=== PATIENT | female | born 1955 | race Caucasian/White ===

== ENCOUNTER 2021-08-02 08:46 | Outpatient (RCR) | payer MEDICARE, OTHER, SELFPAY ==
[2021-08-02 09:21] LABS: Abs Immature Grans 0.04 10^3/uL (0.0-0.06); Absolute Basophil Count 0.06 10^3/uL (0.0-0.2); Absolute Eosinophil Count 0.13 10^3/uL (0.0-0.7); Absolute Lymphocyte Count 0.76 10^3/uL (1.2-3.4); Absolute Monocyte Count 0.59 10^3/uL (0.1-0.8); Absolute Neutrophil Count 5.04 10^3/uL (1.2-6.7); Basophils % 0.9; HCT 37.4 % (36.0-46.0); HGB 12.7 g/dL (11.2-15.7); Immature Grans % 0.6; Lymphocytes % 11.5; MCH 34.7 pg (27.0-33.0); MCV 102.2 fL (80-95); MPV 9.8 fL (8.0-11.0); Monocytes % 8.9; Neutrophils % 76.1; Nucleated RBC 0 %; Platelet Count 265 10^3/uL (130-400); RBC 3.66 10^6/uL (3.93-5.22); RDW 11.7 % (11.7-14.6); RDW-SD 44.1 fL; WBC 6.62 10^3/uL (4.4-10.8)
[2021-08-02] MEDS: Normal Saline Flush 10 ML SYR IVP (09:47)
[2021-08-02 09:52] LABS: ALT 15 U/L (14-59); AST 18 U/L (15-37); Albumin 3.6 g/dL (3.4-5.0); Alkaline Phosphatase 86 U/L (46-116); Anion Gap 10.8 mmol/L (3-11); BUN 17 mg/dL (7-18); Bilirubin, Total 0.5 mg/dL (0.2-1.0); CO2 25.2 mmol/L (21.0-32.0); CREATININE 0.8 mg/dL (0.55-1.02); Calcium 9.5 mg/dL (8.5-10.1); Chloride 104 mmol/L (98-107); FREE T4 1.07 ng/dL (0.76-1.46); Glucose 131 mg/dL (74-106); Magnesium 1.8 mg/dL (1.8-2.4); Potassium 4.1 mmol/L (3.5-5.1); Sodium 140 mmol/L (136-145); TSH 1.49 uIU/mL (0.36-3.74); Total Protein 7.7 g/dL (6.4-8.2)
== END 2021-08-19 23:59 | disposition home or self-care (01) ==
LOC: INF 08:46
PROVIDERS: Visit Provider Internal Medicine Medical Oncology
DX: C34.32 Malignant neoplasm of lower lobe, left bronchus or lung (principal); Z45.2 Encounter for adjustment and management of vascular access device
CPT/HCPCS: 36591; 80053; 83735; 84439; 84443; 85025

== ENCOUNTER 2021-08-30 01:51 | Outpatient (RCR) | payer MEDICARE, OTHER, SELFPAY ==
[2021-08-30] MEDS: Normal Saline Flush 10 ML SYR IVP (12:00)
[2021-08-30 12:08] LABS: Abs Immature Grans 0.02 10^3/uL (0.0-0.06); Absolute Basophil Count 0.05 10^3/uL (0.0-0.2); Absolute Eosinophil Count 0.19 10^3/uL (0.0-0.7); Absolute Lymphocyte Count 0.66 10^3/uL (1.2-3.4); Absolute Neutrophil Count 4.21 10^3/uL (1.2-6.7); Basophils % 0.9; Eosinophils % 3.3; HCT 36.2 % (36.0-46.0); HGB 12.3 g/dL (11.2-15.7); Immature Grans % 0.3; Lymphocytes % 11.5; MPV 9.6 fL (8.0-11.0); Monocytes % 10.5; Neutrophils % 73.5; Nucleated RBC 0 %; Platelet Count 228 10^3/uL (130-400); RBC 3.62 10^6/uL (3.93-5.22); RDW-SD 44.1 fL; WBC 5.73 10^3/uL (4.4-10.8)
[2021-08-30 12:32] LABS: ALT 30 U/L (14-59); AST 19 U/L (15-37); Albumin 3.5 g/dL (3.4-5.0); Alkaline Phosphatase 91 U/L (46-116); Anion Gap 8.1 mmol/L (3-11); BUN 13 mg/dL (7-18); Bilirubin, Total 0.6 mg/dL (0.2-1.0); CO2 26.9 mmol/L (21.0-32.0); CREATININE 0.7 mg/dL (0.55-1.02); Calcium 9.5 mg/dL (8.5-10.1); Chloride 102 mmol/L (98-107); FREE T4 1.22 ng/dL (0.76-1.46); Glucose 107 mg/dL (74-106); Magnesium 1.7 mg/dL (1.8-2.4); Potassium 4.1 mmol/L (3.5-5.1); Sodium 137 mmol/L (136-145); TSH 2.19 uIU/mL (0.36-3.74); Total Protein 7.2 g/dL (6.4-8.2)
== END 2021-09-18 23:59 | disposition home or self-care (01) ==
LOC: INF 01:51
PROVIDERS: Visit Provider Internal Medicine Medical Oncology
DX: Z45.2 Encounter for adjustment and management of vascular access device (principal); C34.32 Malignant neoplasm of lower lobe, left bronchus or lung
CPT/HCPCS: 36591; 80053; 85027; 83735; 84439; 84443; 85025

== ENCOUNTER 2021-09-27 00:52 | Outpatient (RCR) | payer MEDICARE, OTHER, SELFPAY ==
[2021-09-27 08:43] LABS: Abs Immature Grans 0.05 10^3/uL (0.0-0.06); Absolute Basophil Count 0.03 10^3/uL (0.0-0.2); Absolute Eosinophil Count 0.14 10^3/uL (0.0-0.7); Absolute Lymphocyte Count 0.58 10^3/uL (1.2-3.4); Absolute Monocyte Count 0.62 10^3/uL (0.1-0.8); Basophils % 0.3; Eosinophils % 1.2; HCT 39.6 % (36.0-46.0); HGB 13.6 g/dL (11.2-15.7); Immature Grans % 0.4; Lymphocytes % 5.1; MCH 33.1 pg (27.0-33.0); MCHC 34.3 % (32.0-36.0); MCV 96 fL (80-95); MPV 9.8 fL (8.0-11.0); Monocytes % 5.5; Neutrophils % 87.5; Platelet Count 282 10^3/uL (130-400); RBC 4.11 10^6/uL (3.93-5.22); RDW 11.8 % (11.7-14.6); RDW-SD 41.6 fL; WBC 11.29 10^3/uL (4.4-10.8)
[2021-09-27 08:44] LABS: Absolute Neutrophil Count 9.88 10^3/uL (1.2-6.7)
[2021-09-27 09:07] LABS: ALT 22 U/L (14-59); AST 14 U/L (15-37); Albumin 3.4 g/dL (3.4-5.0); Alkaline Phosphatase 97 U/L (46-116); Anion Gap 9.5 mmol/L (3-11); BUN 14 mg/dL (7-18); Bilirubin, Total 0.6 mg/dL (0.2-1.0); CO2 23.5 mmol/L (21.0-32.0); CREATININE 0.7 mg/dL (0.55-1.02); Calcium 9.1 mg/dL (8.5-10.1); Chloride 100 mmol/L (98-107); FREE T4 1.15 ng/dL (0.76-1.46); Glucose 154 mg/dL (74-106); Potassium 4.3 mmol/L (3.5-5.1); Sodium 133 mmol/L (136-145); TSH 1.21 uIU/mL (0.36-3.74); Total Protein 7.2 g/dL (6.4-8.2)
[2021-09-27] MEDS: Normal Saline Flush 10 ML SYR IVP (10:09)
== END 2021-10-19 23:59 | disposition home or self-care (01) ==
LOC: INF 00:52
PROVIDERS: Visit Provider Internal Medicine Medical Oncology
DX: C34.32 Malignant neoplasm of lower lobe, left bronchus or lung (principal); Z45.2 Encounter for adjustment and management of vascular access device
CPT/HCPCS: 36415; 36591; 80053; 96523; 83735; 84439; 84443; 85025

== ENCOUNTER 2021-10-25 02:58 | Outpatient (RCR) | payer MEDICARE, OTHER, SELFPAY ==
[2021-10-25] MEDS: Normal Saline Flush 10 ML SYR IVP (08:20)
[2021-10-25 09:00] LABS: Abs Immature Grans 0.03 10^3/uL (0.0-0.06); Absolute Basophil Count 0.06 10^3/uL (0.0-0.2); Absolute Eosinophil Count 0.39 10^3/uL (0.0-0.7); Absolute Lymphocyte Count 0.66 10^3/uL (1.2-3.4); Absolute Monocyte Count 0.57 10^3/uL (0.1-0.8); Absolute Neutrophil Count 5.03 10^3/uL (1.2-6.7); Basophils % 0.9; Eosinophils % 5.8; HCT 38.8 % (36.0-46.0); HGB 13.1 g/dL (11.2-15.7); Immature Grans % 0.4; Lymphocytes % 9.8; MCH 32.3 pg (27.0-33.0); MCHC 33.8 % (32.0-36.0); MCV 96 fL (80-95); MPV 10.3 fL (8.0-11.0); Monocytes % 8.5; Neutrophils % 74.6; Platelet Count 252 10^3/uL (130-400); RBC 4.06 10^6/uL (3.93-5.22); RDW 11.9 % (11.7-14.6); RDW-SD 41.4 fL; WBC 6.74 10^3/uL (4.4-10.8)
[2021-10-25 09:36] LABS: ALT 23 U/L (14-59); AST 20 U/L (15-37); Albumin 3.3 g/dL (3.4-5.0); Alkaline Phosphatase 92 U/L (46-116); BUN 9 mg/dL (7-18); Bilirubin, Total 0.5 mg/dL (0.2-1.0); CREATININE 0.7 mg/dL (0.55-1.02); Calcium 9.6 mg/dL (8.5-10.1); FREE T4 1.05 ng/dL (0.76-1.46); Glucose 116 mg/dL (74-106); Magnesium 1.8 mg/dL (1.8-2.4); TSH 1.96 uIU/mL (0.36-3.74); Total Protein 7.2 g/dL (6.4-8.2)
[2021-10-25 09:48] LABS: Anion Gap 8.4 mmol/L (3-11); CO2 29.6 mmol/L (21.0-32.0); Chloride 101 mmol/L (98-107); Potassium 4.2 mmol/L (3.5-5.1); Sodium 139 mmol/L (136-145)
== END 2021-11-18 23:59 | disposition home or self-care (01) ==
LOC: INF 02:58
PROVIDERS: Visit Provider Internal Medicine Medical Oncology
DX: C34.32 Malignant neoplasm of lower lobe, left bronchus or lung (principal); Z45.2 Encounter for adjustment and management of vascular access device; Z79.899 Other long term (current) drug therapy
CPT/HCPCS: 36415; 80053; 96523; 83735; 84439; 84443; 85025

== ENCOUNTER 2021-12-13 02:35 | Outpatient (RCR) | payer MEDICARE, OTHER, SELFPAY ==
[2021-11-29] MEDS: Normal Saline Flush 10 ML SYR IVP (09:40)
[2021-11-29 10:05] LABS: Abs Immature Grans 0.02 10^3/uL (0.0-0.06); Absolute Basophil Count 0.06 10^3/uL (0.0-0.2); Absolute Eosinophil Count 0.21 10^3/uL (0.0-0.7); Absolute Lymphocyte Count 0.74 10^3/uL (1.2-3.4); Absolute Monocyte Count 0.54 10^3/uL (0.1-0.8); Absolute Neutrophil Count 4.35 10^3/uL (1.2-6.7); Eosinophils % 3.5; HCT 38.7 % (36.0-46.0); HGB 13.2 g/dL (11.2-15.7); Immature Grans % 0.3; Lymphocytes % 12.5; MCH 32.4 pg (27.0-33.0); MCHC 34.1 % (32.0-36.0); MCV 95 fL (80-95); MPV 9.6 fL (8.0-11.0); Monocytes % 9.1; Neutrophils % 73.6; Platelet Count 252 10^3/uL (130-400); RBC 4.07 10^6/uL (3.93-5.22); RDW 11.9 % (11.7-14.6); RDW-SD 41.3 fL; WBC 5.92 10^3/uL (4.4-10.8)
[2021-11-29 10:36] LABS: ALT 20 U/L (14-59); AST 15 U/L (15-37); Albumin 3.3 g/dL (3.4-5.0); Alkaline Phosphatase 93 U/L (46-116); Anion Gap 9.1 mmol/L (3-11); BUN 11 mg/dL (7-18); Bilirubin, Total 0.6 mg/dL (0.2-1.0); CO2 27.9 mmol/L (21.0-32.0); CREATININE 0.7 mg/dL (0.55-1.02); Calcium 9.5 mg/dL (8.5-10.1); Chloride 99 mmol/L (98-107); FREE T4 1.12 ng/dL (0.76-1.46); Glucose 100 mg/dL (74-106); Magnesium 1.7 mg/dL (1.8-2.4); Sodium 136 mmol/L (136-145); TSH 1.98 uIU/mL (0.36-3.74)
== END 2021-12-19 23:59 | disposition home or self-care (01) ==
LOC: INF 02:35
PROVIDERS: Visit Provider Internal Medicine Medical Oncology
DX: C34.32 Malignant neoplasm of lower lobe, left bronchus or lung (principal); Z45.2 Encounter for adjustment and management of vascular access device
CPT/HCPCS: 36415; 36591; 80053; 83735; 84439; 84443; 85025

== ENCOUNTER 2022-01-10 03:27 | Outpatient (RCR) | payer MEDICARE, OTHER, SELFPAY ==
[2022-01-10] MEDS: Normal Saline Flush 10 ML SYR IVP (12:11)
[2022-01-10 12:18] LABS: Abs Immature Grans 0.04 10^3/uL (0.0-0.06); Absolute Basophil Count 0.02 10^3/uL (0.0-0.2); Absolute Monocyte Count 0.18 10^3/uL (0.1-0.8); Absolute Neutrophil Count 2.64 10^3/uL (1.2-6.7); Basophils % 0.6; Eosinophils % 5.7; HCT 36.9 % (36.0-46.0); HGB 12.6 g/dL (11.2-15.7); Immature Grans % 1.1; Lymphocytes % 11.5; MCH 31.7 pg (27.0-33.0); MCHC 34.1 % (32.0-36.0); MCV 93 fL (80-95); MPV 10.2 fL (8.0-11.0); Monocytes % 5.2; Neutrophils % 75.9; Platelet Count 163 10^3/uL (130-400); RBC 3.97 10^6/uL (3.93-5.22); RDW 11.9 % (11.7-14.6); RDW-SD 40.7 fL; WBC 3.48 10^3/uL (4.4-10.8)
[2022-01-10 12:42] LABS: ALT 24 U/L (14-59); AST 19 U/L (15-37); Albumin 3.3 g/dL (3.4-5.0); Alkaline Phosphatase 101 U/L (46-116); Anion Gap 5.7 mmol/L (3-11); BUN 15 mg/dL (7-18); Bilirubin, Total 0.5 mg/dL (0.2-1.0); CO2 30.3 mmol/L (21.0-32.0); CREATININE 0.7 mg/dL (0.55-1.02); Chloride 97 mmol/L (98-107); Glucose 117 mg/dL (74-106); Magnesium 1.8 mg/dL (1.8-2.4); Potassium 4.1 mmol/L (3.5-5.1); Sodium 133 mmol/L (136-145); TSH 2.06 uIU/mL (0.36-3.74); Total Protein 6.9 g/dL (6.4-8.2)
== END 2022-01-19 23:59 | disposition home or self-care (01) ==
LOC: INF 03:27
PROVIDERS: Visit Provider Internal Medicine Medical Oncology
DX: C34.32 Malignant neoplasm of lower lobe, left bronchus or lung (principal); Z45.2 Encounter for adjustment and management of vascular access device
CPT/HCPCS: 36415; 36591; 80053; 96523; 83735; 84439; 84443; 85025

== ENCOUNTER → 2022-01-31 01:43 | Outpatient (CLI) | payer MEDICARE, OTHER, SELFPAY ==
--- NOTE | 2022-01-31 | DI.RAD_ITS ---
Exam(s) RF CATHETER PATENCY CHECK W EXAM: RF CATHETER PATENCY CHECK W CLINICAL HISTORY: MEDIPORT PLACED WITH POOR BLOOD RETURN, ? POSITIONING/NEED FOR ADJUSTMENT. TECHNIQUE: 2D and realtime digital imaging was performed. CONTRAST MATERIAL: Total contrast volume was 40 cc Omnipaque 350. Four sequences performed with 10 cc each.. COMPARISON: No exams were available for comparison FINDINGS: Distal tip of the left subclavian Port-A-Cath is in the midline within the innominate vein. 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 Some cont rast gets through into the SVC. However, there is also significant back pressure filling of veins. 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 RADIATION DOSE DELIVERED: emy Harris=14.1mGy
[2022-01-31] MEDS: Omnipaque 350 MG/ML 100 ML BTL IJ (10:46)
== END ==
PROVIDERS: Visit Provider Internal Medicine Medical Oncology
DX: C34.32 Malignant neoplasm of lower lobe, left bronchus or lung (principal); Z45.2 Encounter for adjustment and management of vascular access device; I87.1 Compression of vein
CPT/HCPCS: 36415; 76000; 80053; 96523; 83735; 84439; 84443; 85025; J3490

== ENCOUNTER 2022-02-14 02:27 | Outpatient (RCR) | payer MEDICARE, OTHER, SELFPAY ==
[2022-01-25 11:39] LABS: Abs Immature Grans 0.02 10^3/uL (0.0-0.06); Absolute Basophil Count 0.03 10^3/uL (0.0-0.2); Absolute Lymphocyte Count 0.49 10^3/uL (1.2-3.4); Absolute Monocyte Count 0.45 10^3/uL (0.1-0.8); Absolute Neutrophil Count 3.42 10^3/uL (1.2-6.7); Basophils % 0.7; HCT 32.4 % (36.0-46.0); HGB 11.1 g/dL (11.2-15.7); Immature Grans % 0.5; Lymphocytes % 11.1; MCH 32.1 pg (27.0-33.0); MCHC 34.3 % (32.0-36.0); MCV 94 fL (80-95); Monocytes % 10.2; Neutrophils % 77.5; Platelet Count 158 10^3/uL (130-400); RBC 3.46 10^6/uL (3.93-5.22); RDW 13.2 % (11.7-14.6); RDW-SD 40.5 fL; WBC 4.41 10^3/uL (4.4-10.8)
[2022-01-25] MEDS: Normal Saline Flush 10 ML SYR IVP (11:40)
[2022-01-25 12:08] LABS: ALT 21 U/L (14-59); AST 15 U/L (15-37); Albumin 3.3 g/dL (3.4-5.0); Alkaline Phosphatase 98 U/L (46-116); Anion Gap 4.9 mmol/L (3-11); BUN 12 mg/dL (7-18); Bilirubin, Total 0.5 mg/dL (0.2-1.0); CO2 31.1 mmol/L (21.0-32.0); CREATININE 0.7 mg/dL (0.55-1.02); Calcium 9.4 mg/dL (8.5-10.1); Chloride 101 mmol/L (98-107); Estimated GFR 95.92 (mL/min/1.73m2); FREE T4 1.09 ng/dL (0.76-1.46); Glucose 105 mg/dL (74-106); Magnesium 1.4 mg/dL (1.8-2.4); Potassium 4.5 mmol/L (3.5-5.1); Sodium 137 mmol/L (136-145); TSH 2.55 uIU/mL (0.36-3.74); Total Protein 6.9 g/dL (6.4-8.2)
[2022-01-31] MEDS: Normal Saline Flush 10 ML SYR IVP (09:58)
[2022-01-31 10:20] LABS: Abs Immature Grans 0.03 10^3/uL (0.0-0.06); Absolute Basophil Count 0.03 10^3/uL (0.0-0.2); Absolute Eosinophil Count 0.05 10^3/uL (0.0-0.7); Absolute Lymphocyte Count 0.36 10^3/uL (1.2-3.4); Absolute Monocyte Count 0.13 10^3/uL (0.1-0.8); Absolute Neutrophil Count 2.47 10^3/uL (1.2-6.7); Eosinophils % 1.6; HCT 31.8 % (36.0-46.0); HGB 11.4 g/dL (11.2-15.7); Lymphocytes % 11.7; MCH 32.8 pg (27.0-33.0); MCHC 35.8 % (32.0-36.0); MCV 91 fL (80-95); MPV 9.6 fL (8.0-11.0); Monocytes % 4.2; Neutrophils % 80.5; Platelet Count 188 10^3/uL (130-400); RBC 3.48 10^6/uL (3.93-5.22); RDW 13.3 % (11.7-14.6); RDW-SD 41.9 fL; WBC 3.07 10^3/uL (4.4-10.8)
[2022-01-31 10:55] LABS: ALT 27 U/L (14-59); AST 20 U/L (15-37); Albumin 3.4 g/dL (3.4-5.0); Alkaline Phosphatase 95 U/L (46-116); Anion Gap 5.7 mmol/L (3-11); BUN 16 mg/dL (7-18); Bilirubin, Total 0.4 mg/dL (0.2-1.0); CO2 30.3 mmol/L (21.0-32.0); CREATININE 0.6 mg/dL (0.55-1.02); Calcium 9.1 mg/dL (8.5-10.1); Chloride 99 mmol/L (98-107); Estimated GFR 99.55 (mL/min/1.73m2); FREE T4 1.23 ng/dL (0.76-1.46); Glucose 111 mg/dL (74-106); Magnesium 1.5 mg/dL (1.8-2.4); Potassium 3.7 mmol/L (3.5-5.1); Sodium 135 mmol/L (136-145); TSH 1.61 uIU/mL (0.36-3.74); Total Protein 6.9 g/dL (6.4-8.2)
[2022-02-14] MEDS: Normal Saline Flush 10 ML SYR IVP (10:38)
[2022-02-14 11:06] LABS: Abs Immature Grans 0.03 10^3/uL (0.0-0.06); Absolute Basophil Count 0.04 10^3/uL (0.0-0.2); Absolute Eosinophil Count 0.04 10^3/uL (0.0-0.7); Absolute Lymphocyte Count 0.62 10^3/uL (1.2-3.4); Absolute Monocyte Count 0.46 10^3/uL (0.1-0.8); Absolute Neutrophil Count 2.75 10^3/uL (1.2-6.7); HCT 24.4 % (36.0-46.0); HGB 8.6 g/dL (11.2-15.7); Immature Grans % 0.8; Lymphocytes % 15.7; MCH 33.5 pg (27.0-33.0); MCHC 35.2 % (32.0-36.0); MCV 95 fL (80-95); Monocytes % 11.7; Neutrophils % 69.8; Nucleated RBC 0.5 % (0.0-0.3); Platelet Count 108 10^3/uL (130-400); RBC 2.57 10^6/uL (3.93-5.22); RDW 15.4 % (11.7-14.6); RDW-SD 42.5 fL; WBC 3.94 10^3/uL (4.4-10.8)
[2022-02-14 11:29] LABS: ALT 18 U/L (14-59); AST 13 U/L (15-37); Albumin 3.3 g/dL (3.4-5.0); Alkaline Phosphatase 107 U/L (46-116); Anion Gap 9.1 mmol/L (3-11); BUN 10 mg/dL (7-18); Bilirubin, Total 0.5 mg/dL (0.2-1.0); CO2 26.9 mmol/L (21.0-32.0); CREATININE 0.7 mg/dL (0.55-1.02); Calcium 9.2 mg/dL (8.5-10.1); Chloride 101 mmol/L (98-107); Estimated GFR 95.92 (mL/min/1.73m2); FREE T4 1.16 ng/dL (0.76-1.46); Glucose 116 mg/dL (74-106); Magnesium 1.4 mg/dL (1.8-2.4); Potassium 4.2 mmol/L (3.5-5.1); Sodium 137 mmol/L (136-145); TSH 3.24 uIU/mL (0.36-3.74); Total Protein 6.8 g/dL (6.4-8.2)
== END 2022-02-18 23:59 | disposition home or self-care (01) ==
LOC: INF 02:27
PROVIDERS: Visit Provider Internal Medicine Medical Oncology
DX: C34.32 Malignant neoplasm of lower lobe, left bronchus or lung (principal); Z45.2 Encounter for adjustment and management of vascular access device
CPT/HCPCS: 36415; 36591; 80053; 96523; 83735; 84439; 84443; 85025

== ENCOUNTER 2022-03-21 02:40 | Outpatient (RCR) | payer MEDICARE, OTHER, SELFPAY ==
[2022-02-21] MEDS: Normal Saline Flush 10 ML SYR IVP (10:24)
[2022-02-21 10:51] LABS: HCT 22.5 % (36.0-46.0); HGB 7.7 g/dL (11.2-15.7); MCH 32.2 pg (27.0-33.0); MCHC 34.2 % (32.0-36.0); MCV 94 fL (80-95); MPV 10.1 fL (8.0-11.0); Platelet Count 184 10^3/uL (130-400); RBC 2.39 10^6/uL (3.93-5.22); RDW 15.7 % (11.7-14.6); RDW-SD 46.9 fL; WBC 2.43 10^3/uL (4.4-10.8)
[2022-02-21 11:02] LABS: Absolute Basophil Count 0.05 10^3/uL (0.0-0.2); Absolute Eosinophil Count 0.02 10^3/uL (0.0-0.7); Absolute Lymphocyte Count 0.34 10^3/uL (1.2-3.4); Absolute Monocyte Count 0.15 10^3/uL (0.1-0.8); Absolute Neutrophil Count 1.87 10^3/uL (1.2-6.7); Bands % 2; Diff Comment Manual Differential; RBC Morphology Normal
[2022-02-21 11:15] LABS: ALT 23 U/L (14-59); AST 18 U/L (15-37); Albumin 3.4 g/dL (3.4-5.0); Alkaline Phosphatase 89 U/L (46-116); Anion Gap 8.2 mmol/L (3-11); BUN 14 mg/dL (7-18); Bilirubin, Total 0.5 mg/dL (0.2-1.0); CO2 26.8 mmol/L (21.0-32.0); CREATININE 0.6 mg/dL (0.55-1.02); Chloride 103 mmol/L (98-107); Estimated GFR 99.55 (mL/min/1.73m2); Glucose 115 mg/dL (74-106); Magnesium 1.5 mg/dL (1.8-2.4); Potassium 4.2 mmol/L (3.5-5.1); Sodium 138 mmol/L (136-145); Total Protein 6.4 g/dL (6.4-8.2)
[2022-03-07] MEDS: Normal Saline Flush 10 ML SYR IVP (10:22)
[2022-03-07 10:33] LABS: Abs Immature Grans 0.02 10^3/uL (0.0-0.06); Absolute Basophil Count 0.03 10^3/uL (0.0-0.2); Absolute Eosinophil Count 0.02 10^3/uL (0.0-0.7); Absolute Monocyte Count 0.56 10^3/uL (0.1-0.8); Basophils % 0.6; Eosinophils % 0.4; HCT 26.6 % (36.0-46.0); HGB 9.2 g/dL (11.2-15.7); Immature Grans % 0.4; Lymphocytes % 37.3; MCH 33.5 pg (27.0-33.0); MCHC 34.6 % (32.0-36.0); MCV 97 fL (80-95); MPV 10.3 fL (8.0-11.0); Monocytes % 11.6; Neutrophils % 49.7; RBC 2.75 10^6/uL (3.93-5.22); RDW 19.1 % (11.7-14.6); RDW-SD 49.6 fL; WBC 4.83 10^3/uL (4.4-10.8)
[2022-03-07 10:52] LABS: Platelet Count 80 10^3/uL (130-400)
[2022-03-07 10:55] LABS: ALT 21 U/L (14-59); AST 13 U/L (15-37); Albumin 3.3 g/dL (3.4-5.0); Alkaline Phosphatase 92 U/L (46-116); Anion Gap 7.8 mmol/L (3-11); BUN 16 mg/dL (7-18); Bilirubin, Total 0.6 mg/dL (0.2-1.0); CO2 28.2 mmol/L (21.0-32.0); CREATININE 0.8 mg/dL (0.55-1.02); Calcium 9.3 mg/dL (8.5-10.1); Chloride 104 mmol/L (98-107); Estimated GFR 81.72 (mL/min/1.73m2); FREE T4 1.05 ng/dL (0.76-1.46); Glucose 138 mg/dL (74-106); Magnesium 1.6 mg/dL (1.8-2.4); Potassium 4.1 mmol/L (3.5-5.1); Sodium 140 mmol/L (136-145); TSH 1.65 uIU/mL (0.36-3.74); Total Protein 6.6 g/dL (6.4-8.2)
[2022-03-14] MEDS: Normal Saline Flush 10 ML SYR IVP (11:45)
[2022-03-14 11:50] LABS: Abs Immature Grans 0.02 10^3/uL (0.0-0.06); Absolute Basophil Count 0.02 10^3/uL (0.0-0.2); Absolute Eosinophil Count 0.04 10^3/uL (0.0-0.7); Absolute Lymphocyte Count 1.42 10^3/uL (1.2-3.4); Absolute Monocyte Count 0.62 10^3/uL (0.1-0.8); Absolute Neutrophil Count 3.03 10^3/uL (1.2-6.7); Basophils % 0.4; Eosinophils % 0.8; HCT 26.3 % (36.0-46.0); HGB 9.1 g/dL (11.2-15.7); Immature Grans % 0.4; Lymphocytes % 27.6; MCH 34.5 pg (27.0-33.0); MCHC 34.6 % (32.0-36.0); MCV 100 fL (80-95); MPV 9.6 fL (8.0-11.0); Neutrophils % 58.8; Platelet Count 216 10^3/uL (130-400); RBC 2.64 10^6/uL (3.93-5.22); RDW 22.5 % (11.7-14.6); RDW-SD 75.5 fL; WBC 5.15 10^3/uL (4.4-10.8)
[2022-03-14 12:12] LABS: ALT 18 U/L (14-59); AST 14 U/L (15-37); Albumin 3.3 g/dL (3.4-5.0); Alkaline Phosphatase 91 U/L (46-116); Anion Gap 6.7 mmol/L (3-11); BUN 14 mg/dL (7-18); Bilirubin, Total 0.5 mg/dL (0.2-1.0); CO2 27.3 mmol/L (21.0-32.0); CREATININE 0.7 mg/dL (0.55-1.02); Calcium 9.4 mg/dL (8.5-10.1); Chloride 104 mmol/L (98-107); Estimated GFR 95.92 (mL/min/1.73m2); Glucose 108 mg/dL (74-106); Potassium 4.2 mmol/L (3.5-5.1); Sodium 138 mmol/L (136-145); Total Protein 6.9 g/dL (6.4-8.2)
[2022-03-21] MEDS: Normal Saline Flush 10 ML SYR IVP (10:54)
[2022-03-21 11:04] LABS: Abs Immature Grans 0.04 10^3/uL (0.0-0.06); Absolute Basophil Count 0.02 10^3/uL (0.0-0.2); Absolute Eosinophil Count 0.08 10^3/uL (0.0-0.7); Absolute Monocyte Count 0.31 10^3/uL (0.1-0.8); Basophils % 0.5; Eosinophils % 2.1; HGB 8.5 g/dL (11.2-15.7); Immature Grans % 1.1; Lymphocytes % 21.3; MCV 100 fL (80-95); MPV 9.8 fL (8.0-11.0); Monocytes % 8.3; Neutrophils % 66.7; Platelet Count 206 10^3/uL (130-400); RDW 20.4 % (11.7-14.6); RDW-SD 70.4 fL; WBC 3.75 10^3/uL (4.4-10.8)
[2022-03-21 11:17] LABS: Anisocytosis 2+; Diff Comment Diff Reviewed; Polychromasia Present
[2022-03-21 11:24] LABS: ALT 21 U/L (14-59); AST 17 U/L (15-37); Albumin 3.3 g/dL (3.4-5.0); Alkaline Phosphatase 90 U/L (46-116); Anion Gap 4.4 mmol/L (3-11); BUN 20 mg/dL (7-18); Bilirubin, Total 0.4 mg/dL (0.2-1.0); CO2 28.6 mmol/L (21.0-32.0); CREATININE 0.8 mg/dL (0.55-1.02); Chloride 103 mmol/L (98-107); Estimated GFR 81.72 (mL/min/1.73m2); FREE T4 1.06 ng/dL (0.76-1.46); Glucose 103 mg/dL (74-106); Magnesium 1.5 mg/dL (1.8-2.4); Potassium 4.2 mmol/L (3.5-5.1); Sodium 136 mmol/L (136-145); TSH 1.87 uIU/mL (0.36-3.74); Total Protein 6.6 g/dL (6.4-8.2)
== END 2022-03-21 23:59 | disposition home or self-care (01) ==
LOC: INF 02:40
PROVIDERS: Visit Provider Internal Medicine Medical Oncology
DX: C34.32 Malignant neoplasm of lower lobe, left bronchus or lung (principal); Z45.2 Encounter for adjustment and management of vascular access device
CPT/HCPCS: 36591; 80053; 83735; 84439; 84443; 85025

== ENCOUNTER 2022-04-12 02:43 | Outpatient (RCR) | payer MEDICARE, SELFPAY ==
[2022-04-04] MEDS: Normal Saline Flush 10 ML SYR IVP (10:34)
[2022-04-04 10:41] LABS: Abs Immature Grans 0.01 10^3/uL (0.0-0.06); Absolute Basophil Count 0.02 10^3/uL (0.0-0.2); Absolute Eosinophil Count 0.04 10^3/uL (0.0-0.7); Absolute Lymphocyte Count 0.93 10^3/uL (1.2-3.4); Absolute Monocyte Count 0.63 10^3/uL (0.1-0.8); Absolute Neutrophil Count 2.83 10^3/uL (1.2-6.7); Basophils % 0.4; Eosinophils % 0.9; HCT 22.6 % (36.0-46.0); HGB 7.6 g/dL (11.2-15.7); Immature Grans % 0.2; Lymphocytes % 20.9; MCH 35.7 pg (27.0-33.0); MCHC 33.6 % (32.0-36.0); MCV 106 fL (80-95); MPV 10.4 fL (8.0-11.0); Monocytes % 14.1; Neutrophils % 63.5; Nucleated RBC 0.7 % (0.0-0.3); Platelet Count 107 10^3/uL (130-400); RBC 2.13 10^6/uL (3.93-5.22); RDW 23.4 % (11.7-14.6); RDW-SD 87.8 fL; WBC 4.46 10^3/uL (4.4-10.8)
[2022-04-04 10:57] LABS: Anisocytosis 2+
[2022-04-04 10:58] LABS: Macrocytosis 2+; Microcytosis 1+; Polychromasia Present
[2022-04-04 11:04] LABS: ALT 17 U/L (14-59); AST 15 U/L (15-37); Albumin 3.4 g/dL (3.4-5.0); Alkaline Phosphatase 101 U/L (46-116); Anion Gap 8.2 mmol/L (3-11); BUN 12 mg/dL (7-18); Bilirubin, Total 0.7 mg/dL (0.2-1.0); CO2 27.8 mmol/L (21.0-32.0); CREATININE 0.8 mg/dL (0.55-1.02); Calcium 9.1 mg/dL (8.5-10.1); Chloride 102 mmol/L (98-107); Estimated GFR 81.72 (mL/min/1.73m2); FREE T4 1.15 ng/dL (0.76-1.46); Glucose 124 mg/dL (74-106); Magnesium 1.4 mg/dL (1.8-2.4); Potassium 4.1 mmol/L (3.5-5.1); Sodium 138 mmol/L (136-145); TSH 1.43 uIU/mL (0.36-3.74); Total Protein 6.9 g/dL (6.4-8.2)
[2022-04-12] MEDS: Normal Saline Flush 10 ML SYR IVP (11:26)
[2022-04-12 11:36] LABS: Abs Immature Grans 0.02 10^3/uL (0.0-0.06); Absolute Basophil Count 0.04 10^3/uL (0.0-0.2); Absolute Eosinophil Count 0.04 10^3/uL (0.0-0.7); Absolute Lymphocyte Count 0.73 10^3/uL (1.2-3.4); Absolute Monocyte Count 0.42 10^3/uL (0.1-0.8); Absolute Neutrophil Count 2.97 10^3/uL (1.2-6.7); Basophils % 0.9; Eosinophils % 0.9; HCT 29.3 % (36.0-46.0); HGB 10.2 g/dL (11.2-15.7); Immature Grans % 0.5; Lymphocytes % 17.3; MCH 33.7 pg (27.0-33.0); MCHC 34.8 % (32.0-36.0); MCV 97 fL (80-95); MPV 9.8 fL (8.0-11.0); Neutrophils % 70.4; Platelet Count 129 10^3/uL (130-400); RBC 3.03 10^6/uL (3.93-5.22); RDW 20.8 % (11.7-14.6); RDW-SD 70.2 fL; WBC 4.22 10^3/uL (4.4-10.8)
[2022-04-12 12:03] LABS: ALT 21 U/L (14-59); AST 16 U/L (15-37); Albumin 3.4 g/dL (3.4-5.0); Alkaline Phosphatase 96 U/L (46-116); Anion Gap 6.6 mmol/L (3-11); BUN 14 mg/dL (7-18); Bilirubin, Total 0.5 mg/dL (0.2-1.0); CO2 27.4 mmol/L (21.0-32.0); CREATININE 0.7 mg/dL (0.55-1.02); Calcium 9.2 mg/dL (8.5-10.1); Chloride 100 mmol/L (98-107); Estimated GFR 95.92 (mL/min/1.73m2); Glucose 100 mg/dL (74-106); Potassium 4.2 mmol/L (3.5-5.1); Sodium 134 mmol/L (136-145); Total Protein 6.8 g/dL (6.4-8.2)
== END 2022-04-20 23:59 | disposition home or self-care (01) ==
LOC: INF 02:43
PROVIDERS: Visit Provider Internal Medicine Medical Oncology
DX: C34.32 Malignant neoplasm of lower lobe, left bronchus or lung (principal); Z45.2 Encounter for adjustment and management of vascular access device
CPT/HCPCS: 36591; 80053; 83735; 84439; 84443; 85025

== ENCOUNTER 2022-05-09 02:43 | Outpatient (RCR) | payer MEDICARE, SELFPAY ==
[2022-04-25] MEDS: Normal Saline Flush 10 ML SYR IVP (09:24)
[2022-04-25 09:39] LABS: Abs Immature Grans 0.01 10^3/uL (0.0-0.06); Absolute Basophil Count 0.03 10^3/uL (0.0-0.2); Absolute Eosinophil Count 0.05 10^3/uL (0.0-0.7); Absolute Lymphocyte Count 0.62 10^3/uL (1.2-3.4); Absolute Monocyte Count 0.44 10^3/uL (0.1-0.8); Absolute Neutrophil Count 2.19 10^3/uL (1.2-6.7); Basophils % 0.9; Eosinophils % 1.5; HCT 26.7 % (36.0-46.0); Immature Grans % 0.3; Lymphocytes % 18.6; MCH 33.7 pg (27.0-33.0); MCHC 33.7 % (32.0-36.0); MCV 100 fL (80-95); MPV 9.9 fL (8.0-11.0); Monocytes % 13.2; Neutrophils % 65.5; Platelet Count 108 10^3/uL (130-400); RBC 2.67 10^6/uL (3.93-5.22); RDW 22.3 % (11.7-14.6); RDW-SD 76.5 fL; WBC 3.34 10^3/uL (4.4-10.8)
[2022-04-25 09:57] LABS: Anisocytosis 2+; Diff Comment RBC Morph Reviewed
[2022-04-25 10:02] LABS: ALT 20 U/L (14-59); AST 16 U/L (15-37); Albumin 3.3 g/dL (3.4-5.0); Alkaline Phosphatase 102 U/L (46-116); BUN 13 mg/dL (7-18); Bilirubin, Total 0.5 mg/dL (0.2-1.0); CREATININE 0.7 mg/dL (0.55-1.02); Calcium 9.2 mg/dL (8.5-10.1); Chloride 100 mmol/L (98-107); Estimated GFR 95.92 (mL/min/1.73m2); FREE T4 1.08 ng/dL (0.76-1.46); Glucose 115 mg/dL (74-106); Magnesium 1.6 mg/dL (1.8-2.4); Potassium 4.3 mmol/L (3.5-5.1); Sodium 137 mmol/L (136-145); TSH 1.34 uIU/mL (0.36-3.74); Total Protein 6.7 g/dL (6.4-8.2)
[2022-05-02] MEDS: Normal Saline Flush 10 ML SYR IVP (11:22)
[2022-05-02 11:32] LABS: Abs Immature Grans 0.03 10^3/uL (0.0-0.06); Absolute Basophil Count 0.03 10^3/uL (0.0-0.2); Absolute Eosinophil Count 0.03 10^3/uL (0.0-0.7); Absolute Lymphocyte Count 0.72 10^3/uL (1.2-3.4); Absolute Monocyte Count 0.47 10^3/uL (0.1-0.8); Absolute Neutrophil Count 3.39 10^3/uL (1.2-6.7); Basophils % 0.6; Eosinophils % 0.6; HCT 25.4 % (36.0-46.0); HGB 8.5 g/dL (11.2-15.7); Immature Grans % 0.6; Lymphocytes % 15.4; MCH 33.5 pg (27.0-33.0); MCHC 33.5 % (32.0-36.0); MCV 100 fL (80-95); MPV 10.1 fL (8.0-11.0); Monocytes % 10.1; Neutrophils % 72.7; Platelet Count 129 10^3/uL (130-400); RBC 2.54 10^6/uL (3.93-5.22); RDW 21.6 % (11.7-14.6); RDW-SD 75.7 fL; WBC 4.67 10^3/uL (4.4-10.8)
[2022-05-02 11:44] LABS: Anisocytosis 2+; Diff Comment RBC Morph Reviewed
[2022-05-02 11:45] LABS: Polychromasia Present
[2022-05-02 12:01] LABS: ALT 27 U/L (14-59); AST 19 U/L (15-37); Albumin 3.2 g/dL (3.4-5.0); Alkaline Phosphatase 102 U/L (46-116); Anion Gap 5.9 mmol/L (3-11); BUN 17 mg/dL (7-18); Bilirubin, Total 0.3 mg/dL (0.2-1.0); CO2 29.1 mmol/L (21.0-32.0); CREATININE 0.7 mg/dL (0.55-1.02); Calcium 8.9 mg/dL (8.5-10.1); Chloride 99 mmol/L (98-107); Estimated GFR 95.92 (mL/min/1.73m2); FREE T4 1.08 ng/dL (0.76-1.46); Glucose 114 mg/dL (74-106); Magnesium 1.8 mg/dL (1.8-2.4); Potassium 4.2 mmol/L (3.5-5.1); Sodium 134 mmol/L (136-145); TSH 1.56 uIU/mL (0.36-3.74); Total Protein 6.5 g/dL (6.4-8.2)
[2022-05-09] MEDS: Normal Saline Flush 10 ML SYR IVP (12:29)
[2022-05-09] MEDS: Heparin 500 UNITS/5 ML SYRINGE IV (12:29)
[2022-05-09 12:40] LABS: Abs Immature Grans 0.01 10^3/uL (0.0-0.06); Absolute Basophil Count 0.02 10^3/uL (0.0-0.2); Absolute Eosinophil Count 0.04 10^3/uL (0.0-0.7); Absolute Lymphocyte Count 0.68 10^3/uL (1.2-3.4); Absolute Monocyte Count 0.25 10^3/uL (0.1-0.8); Absolute Neutrophil Count 1.73 10^3/uL (1.2-6.7); Basophils % 0.7; Eosinophils % 1.5; HCT 23.2 % (36.0-46.0); Immature Grans % 0.4; Lymphocytes % 24.9; MCH 34.5 pg (27.0-33.0); MCHC 34.5 % (32.0-36.0); MCV 100 fL (80-95); MPV 10.3 fL (8.0-11.0); Monocytes % 9.2; Neutrophils % 63.3; Nucleated RBC 0.7 % (0.0-0.3); Platelet Count 126 10^3/uL (130-400); RBC 2.32 10^6/uL (3.93-5.22); WBC 2.73 10^3/uL (4.4-10.8)
[2022-05-09 12:59] LABS: Diff Comment RBC Morph Reviewed; Macrocytosis 2+
[2022-05-09 13:03] LABS: ALT 24 U/L (14-59); AST 17 U/L (15-37); Albumin 3.4 g/dL (3.4-5.0); Alkaline Phosphatase 101 U/L (46-116); Anion Gap 8.3 mmol/L (3-11); BUN 11 mg/dL (7-18); Bilirubin, Total 0.5 mg/dL (0.2-1.0); CO2 26.7 mmol/L (21.0-32.0); CREATININE 0.7 mg/dL (0.55-1.02); Calcium 9.1 mg/dL (8.5-10.1); Chloride 101 mmol/L (98-107); Estimated GFR 95.92 (mL/min/1.73m2); Glucose 113 mg/dL (74-106); Magnesium 1.8 mg/dL (1.8-2.4); Potassium 3.8 mmol/L (3.5-5.1); Sodium 136 mmol/L (136-145); TSH 2.92 uIU/mL (0.36-3.74); Total Protein 6.8 g/dL (6.4-8.2)
== END 2022-05-21 23:59 | disposition home or self-care (01) ==
LOC: INF 02:43
PROVIDERS: Visit Provider Internal Medicine Medical Oncology
DX: C34.32 Malignant neoplasm of lower lobe, left bronchus or lung (principal); Z45.2 Encounter for adjustment and management of vascular access device; Z79.899 Other long term (current) drug therapy
CPT/HCPCS: 36591; 80053; 83735; 84439; 84443; 85025

== ENCOUNTER 2022-05-27 09:41 | Outpatient (REF) | payer MEDICARE, SELFPAY ==
[2022-05-27 09:57] LABS: ALT 29 U/L (14-59); AST 21 U/L (15-37); Albumin 3.1 g/dL (3.4-5.0); Alkaline Phosphatase 96 U/L (46-116); Anion Gap 4.6 mmol/L (3-11); BUN 12 mg/dL (7-18); Bilirubin, Total 0.4 mg/dL (0.2-1.0); CO2 29.4 mmol/L (21.0-32.0); CREATININE 0.7 mg/dL (0.55-1.02); Chloride 103 mmol/L (98-107); Estimated GFR 95.92 (mL/min/1.73m2); Glucose 113 mg/dL (74-106); Potassium 4.1 mmol/L (3.5-5.1); Sodium 137 mmol/L (136-145); Total Protein 6.5 g/dL (6.4-8.2)
== END 2022-05-27 09:42 | disposition home or self-care (01) ==
LOC: LBN 09:41
PROVIDERS: Visit Provider Internal Medicine Medical Oncology
DX: C34.32 Malignant neoplasm of lower lobe, left bronchus or lung (principal)
CPT/HCPCS: 80053

== ENCOUNTER 2022-06-13 02:17 | Outpatient (RCR) | payer MEDICARE, SELFPAY ==
[2022-06-13] MEDS: Normal Saline Flush 10 ML SYR IVP (09:52)
[2022-06-13 10:23] LABS: Abs Immature Grans 0.03 10^3/uL (0.0-0.06); Absolute Basophil Count 0.05 10^3/uL (0.0-0.2); Absolute Eosinophil Count 0.19 10^3/uL (0.0-0.7); Absolute Lymphocyte Count 0.52 10^3/uL (1.2-3.4); Absolute Monocyte Count 0.51 10^3/uL (0.1-0.8); Absolute Neutrophil Count 2.44 10^3/uL (1.2-6.7); Basophils % 1.3; Eosinophils % 5.1; HCT 30.4 % (36.0-46.0); HGB 10.5 g/dL (11.2-15.7); Immature Grans % 0.8; Lymphocytes % 13.9; MCH 34.9 pg (27.0-33.0); MCHC 34.5 % (32.0-36.0); MCV 101 fL (80-95); Monocytes % 13.6; Neutrophils % 65.3; Platelet Count 214 10^3/uL (130-400); RBC 3.01 10^6/uL (3.93-5.22); RDW 21.9 % (11.7-14.6); RDW-SD 79.7 fL; WBC 3.74 10^3/uL (4.4-10.8)
[2022-06-13 10:54] LABS: ALT 30 U/L (14-59); AST 24 U/L (15-37); Albumin 3.1 g/dL (3.4-5.0); Alkaline Phosphatase 103 U/L (46-116); BUN 12 mg/dL (7-18); Bilirubin, Total 0.5 mg/dL (0.2-1.0); CREATININE 0.8 mg/dL (0.55-1.02); Calcium 9.4 mg/dL (8.5-10.1); Chloride 101 mmol/L (98-107); Estimated GFR 81.72 (mL/min/1.73m2); FREE T4 1.12 ng/dL (0.76-1.46); Glucose 123 mg/dL (74-106); Magnesium 1.6 mg/dL (1.8-2.4); Potassium 4.2 mmol/L (3.5-5.1); Sodium 137 mmol/L (136-145); TSH 1.29 uIU/mL (0.36-3.74); Total Protein 6.8 g/dL (6.4-8.2)
== END 2022-06-21 23:59 | disposition home or self-care (01) ==
LOC: INF 02:17
PROVIDERS: Visit Provider Internal Medicine Medical Oncology
DX: C34.2 Malignant neoplasm of middle lobe, bronchus or lung (principal); Z45.2 Encounter for adjustment and management of vascular access device
CPT/HCPCS: 36591; 80053; 83735; 84439; 84443; 85025

== ENCOUNTER 2022-07-04 00:43 | Outpatient (RCR) | payer MEDICARE, SELFPAY ==
[2022-07-04] MEDS: Normal Saline Flush 10 ML SYR IVP (09:50)
[2022-07-04 10:00] LABS: Abs Immature Grans 0.03 10^3/uL (0.0-0.06); Absolute Basophil Count 0.05 10^3/uL (0.0-0.2); Absolute Lymphocyte Count 0.55 10^3/uL (1.2-3.4); Absolute Monocyte Count 0.46 10^3/uL (0.1-0.8); Absolute Neutrophil Count 3.65 10^3/uL (1.2-6.7); Eosinophils % 2.1; HCT 29.5 % (36.0-46.0); Immature Grans % 0.6; Lymphocytes % 11.4; MCHC 33.9 % (32.0-36.0); MCV 106 fL (80-95); MPV 9.4 fL (8.0-11.0); Monocytes % 9.5; Neutrophils % 75.4; Platelet Count 258 10^3/uL (130-400); RBC 2.78 10^6/uL (3.93-5.22); WBC 4.84 10^3/uL (4.4-10.8)
[2022-07-04 10:18] LABS: Anisocytosis 3+; Diff Comment Diff Reviewed; Macrocytosis 2+; Polychromasia Present
[2022-07-04 10:19] LABS: Poikilocytes 1+
[2022-07-04 10:27] LABS: ALT 33 U/L (14-59); AST 26 U/L (15-37); Albumin 2.9 g/dL (3.4-5.0); Alkaline Phosphatase 104 U/L (46-116); Anion Gap 4.8 mmol/L (3-11); BUN 12 mg/dL (7-18); Bilirubin, Total 0.4 mg/dL (0.2-1.0); CO2 29.2 mmol/L (21.0-32.0); Calcium 9.2 mg/dL (8.5-10.1); Chloride 102 mmol/L (98-107); Estimated GFR 62.52 (mL/min/1.73m2); Glucose 149 mg/dL (74-106); Magnesium 1.4 mg/dL (1.8-2.4); Potassium 3.7 mmol/L (3.5-5.1); Sodium 136 mmol/L (136-145); TSH 1.81 uIU/mL (0.36-3.74); Total Protein 6.5 g/dL (6.4-8.2)
== END 2022-07-19 23:59 | disposition home or self-care (01) ==
LOC: INF 00:43
PROVIDERS: Visit Provider Internal Medicine Medical Oncology
DX: C34.32 Malignant neoplasm of lower lobe, left bronchus or lung (principal); Z45.1 Encounter for adjustment and management of infusion pump; Z79.899 Other long term (current) drug therapy
CPT/HCPCS: 36591; 80053; 83735; 84439; 84443; 85025

== ENCOUNTER 2022-08-15 02:12 | Outpatient (RCR) | payer MEDICARE, SELFPAY ==
[2022-07-25] MEDS: Normal Saline Flush 10 ML SYR IVP (09:51)
[2022-07-25 10:02] LABS: Abs Immature Grans 0.02 10^3/uL (0.0-0.06); Absolute Basophil Count 0.05 10^3/uL (0.0-0.2); Absolute Lymphocyte Count 0.45 10^3/uL (1.2-3.4); Absolute Monocyte Count 0.39 10^3/uL (0.1-0.8); Absolute Neutrophil Count 3.65 10^3/uL (1.2-6.7); Basophils % 1.1; Eosinophils % 2.1; HCT 28.9 % (36.0-46.0); HGB 9.9 g/dL (11.2-15.7); Immature Grans % 0.4; Lymphocytes % 9.7; MCH 37.5 pg (27.0-33.0); MCHC 34.3 % (32.0-36.0); MCV 110 fL (80-95); MPV 9.9 fL (8.0-11.0); Monocytes % 8.4; Neutrophils % 78.3; Platelet Count 230 10^3/uL (130-400); RBC 2.64 10^6/uL (3.93-5.22); RDW 19.8 % (11.7-14.6); WBC 4.66 10^3/uL (4.4-10.8)
[2022-07-25 10:17] LABS: Diff Comment RBC Morph Reviewed; Macrocytosis 1+
[2022-07-25 10:27] LABS: ALT 37 U/L (14-59); AST 24 U/L (15-37); Albumin 2.8 g/dL (3.4-5.0); Alkaline Phosphatase 96 U/L (46-116); Anion Gap 6.2 mmol/L (3-11); BUN 12 mg/dL (7-18); Bilirubin, Total 0.4 mg/dL (0.2-1.0); CO2 27.8 mmol/L (21.0-32.0); CREATININE 0.8 mg/dL (0.55-1.02); Calcium 9.1 mg/dL (8.5-10.1); Chloride 103 mmol/L (98-107); Estimated GFR 81.72 (mL/min/1.73m2); Glucose 152 mg/dL (74-106); Magnesium 1.6 mg/dL (1.8-2.4); Potassium 3.9 mmol/L (3.5-5.1); Sodium 137 mmol/L (136-145); TSH 1.33 uIU/mL (0.36-3.74); Total Protein 6.2 g/dL (6.4-8.2)
[2022-08-15] MEDS: Normal Saline Flush 10 ML SYR IVP (09:53)
[2022-08-15 10:12] LABS: Abs Immature Grans 0.02 10^3/uL (0.0-0.06); Absolute Basophil Count 0.05 10^3/uL (0.0-0.2); Absolute Lymphocyte Count 0.47 10^3/uL (1.2-3.4); Absolute Monocyte Count 0.39 10^3/uL (0.1-0.8); Absolute Neutrophil Count 3.19 10^3/uL (1.2-6.7); Basophils % 1.2; Eosinophils % 2.4; HCT 29.4 % (36.0-46.0); HGB 9.9 g/dL (11.2-15.7); Immature Grans % 0.5; Lymphocytes % 11.1; MCH 37.4 pg (27.0-33.0); MCHC 33.7 % (32.0-36.0); MCV 111 fL (80-95); MPV 9.8 fL (8.0-11.0); Monocytes % 9.2; Neutrophils % 75.6; Platelet Count 234 10^3/uL (130-400); RBC 2.65 10^6/uL (3.93-5.22); RDW 17.2 % (11.7-14.6); WBC 4.22 10^3/uL (4.4-10.8)
[2022-08-15 10:39] LABS: ALT 45 U/L (14-59); AST 32 U/L (15-37); Albumin 2.7 g/dL (3.4-5.0); Alkaline Phosphatase 88 U/L (46-116); Anion Gap 5.8 mmol/L (3-11); BUN 12 mg/dL (7-18); Bilirubin, Total 0.4 mg/dL (0.2-1.0); CO2 28.2 mmol/L (21.0-32.0); CREATININE 0.8 mg/dL (0.55-1.02); Calcium 9.1 mg/dL (8.5-10.1); Chloride 104 mmol/L (98-107); Estimated GFR 81.21 (mL/min/1.73m2); FREE T4 1.26 ng/dL (0.76-1.46); Glucose 139 mg/dL (74-106); Magnesium 1.5 mg/dL (1.8-2.4); Potassium 3.9 mmol/L (3.5-5.1); Sodium 138 mmol/L (136-145); TSH 1.47 uIU/mL (0.36-3.74); Total Protein 6.1 g/dL (6.4-8.2)
== END 2022-08-19 23:59 | disposition home or self-care (01) ==
LOC: INF 02:12
PROVIDERS: Nurse Practitioner Family; Visit Provider Internal Medicine Medical Oncology
DX: C34.32 Malignant neoplasm of lower lobe, left bronchus or lung (principal); Z79.899 Other long term (current) drug therapy; Z45.2 Encounter for adjustment and management of vascular access device; E83.42 Hypomagnesemia
CPT/HCPCS: 36591; 80053; 83735; 84439; 84443; 85025

== ENCOUNTER 2022-09-05 01:32 | Outpatient (RCR) | payer MEDICARE, SELFPAY ==
[2022-09-05] MEDS: Normal Saline Flush 10 ML SYR IVP (09:32)
[2022-09-05 09:40] LABS: Abs Immature Grans 0.02 10^3/uL (0.0-0.06); Absolute Basophil Count 0.05 10^3/uL (0.0-0.2); Absolute Eosinophil Count 0.14 10^3/uL (0.0-0.7); Absolute Lymphocyte Count 0.62 10^3/uL (1.2-3.4); Absolute Monocyte Count 0.42 10^3/uL (0.1-0.8); Basophils % 1.1; Eosinophils % 3.1; HCT 29.1 % (36.0-46.0); HGB 10.2 g/dL (11.2-15.7); Immature Grans % 0.4; Lymphocytes % 13.6; MCH 38.8 pg (27.0-33.0); MCHC 35.1 % (32.0-36.0); MCV 111 fL (80-95); MPV 9.3 fL (8.0-11.0); Monocytes % 9.2; Neutrophils % 72.6; Platelet Count 217 10^3/uL (130-400); RBC 2.63 10^6/uL (3.93-5.22); RDW 16.9 % (11.7-14.6); RDW-SD 68.2 fL; WBC 4.55 10^3/uL (4.4-10.8)
[2022-09-05 10:05] LABS: ALT 61 U/L (14-59); AST 39 U/L (15-37); Albumin 2.8 g/dL (3.4-5.0); Alkaline Phosphatase 98 U/L (46-116); Anion Gap 7.6 mmol/L (3-11); BUN 10 mg/dL (7-18); Bilirubin, Total 0.5 mg/dL (0.2-1.0); CO2 27.4 mmol/L (21.0-32.0); CREATININE 0.9 mg/dL (0.55-1.02); Calcium 9.1 mg/dL (8.5-10.1); Chloride 103 mmol/L (98-107); Estimated GFR 70.51 (mL/min/1.73m2); FREE T4 1.25 ng/dL (0.76-1.46); Glucose 142 mg/dL (74-106); Magnesium 1.5 mg/dL (1.8-2.4); Potassium 3.8 mmol/L (3.5-5.1); Sodium 138 mmol/L (136-145); TSH 1.38 uIU/mL (0.36-3.74); Total Protein 6.3 g/dL (6.4-8.2)
== END 2022-09-18 23:59 | disposition home or self-care (01) ==
LOC: INF 01:32
PROVIDERS: Visit Provider Internal Medicine Medical Oncology
DX: Z79.899 Other long term (current) drug therapy (principal); Z45.2 Encounter for adjustment and management of vascular access device; C34.32 Malignant neoplasm of lower lobe, left bronchus or lung; E83.42 Hypomagnesemia
CPT/HCPCS: 36591; 80053; 83735; 84439; 84443; 85025

== ENCOUNTER 2022-10-19 03:16 | Outpatient (RCR) | payer MEDICARE, SELFPAY ==
[2022-09-26] MEDS: Normal Saline Flush 10 ML SYR IVP (07:57)
[2022-09-26 08:39] LABS: Abs Immature Grans 0.02 10^3/uL (0.0-0.06); Absolute Basophil Count 0.04 10^3/uL (0.0-0.2); Absolute Eosinophil Count 0.08 10^3/uL (0.0-0.7); Absolute Lymphocyte Count 0.44 10^3/uL (1.2-3.4); Absolute Monocyte Count 0.47 10^3/uL (0.1-0.8); Absolute Neutrophil Count 3.83 10^3/uL (1.2-6.7); Basophils % 0.8; Eosinophils % 1.6; HCT 28.1 % (36.0-46.0); HGB 9.7 g/dL (11.2-15.7); Immature Grans % 0.4; MCH 38.5 pg (27.0-33.0); MCHC 34.5 % (32.0-36.0); MCV 112 fL (80-95); MPV 10.3 fL (8.0-11.0); Monocytes % 9.6; Neutrophils % 78.6; Platelet Count 229 10^3/uL (130-400); RBC 2.52 10^6/uL (3.93-5.22); RDW 16.8 % (11.7-14.6); RDW-SD 67.4 fL; WBC 4.88 10^3/uL (4.4-10.8)
[2022-09-26 09:11] LABS: ALT 70 U/L (14-59); AST 48 U/L (15-37); Albumin 2.7 g/dL (3.4-5.0); Alkaline Phosphatase 105 U/L (46-116); Anion Gap 7.7 mmol/L (3-11); BUN 11 mg/dL (7-18); Bilirubin, Total 0.5 mg/dL (0.2-1.0); CO2 26.3 mmol/L (21.0-32.0); CREATININE 0.9 mg/dL (0.55-1.02); Chloride 101 mmol/L (98-107); Estimated GFR 70.51 (mL/min/1.73m2); FREE T4 1.25 ng/dL (0.76-1.46); Glucose 139 mg/dL (74-106); Magnesium 1.5 mg/dL (1.8-2.4); Potassium 3.7 mmol/L (3.5-5.1); Sodium 135 mmol/L (136-145); TSH 1.42 uIU/mL (0.36-3.74); Total Protein 6.3 g/dL (6.4-8.2)
[2022-09-26 09:37] LABS: Anisocytosis 3+; Macrocytosis 2+; Microcytosis 1+; Polychromasia Present; Tear Drop Cells 2+
[2022-10-19] MEDS: Normal Saline Flush 10 ML SYR IVP (09:36)
[2022-10-19 10:04] LABS: Abs Immature Grans 0.03 10^3/uL (0.0-0.06); Absolute Basophil Count 0.06 10^3/uL (0.0-0.2); Absolute Eosinophil Count 0.06 10^3/uL (0.0-0.7); Absolute Lymphocyte Count 0.41 10^3/uL (1.2-3.4); Absolute Monocyte Count 0.71 10^3/uL (0.1-0.8); Absolute Neutrophil Count 5.01 10^3/uL (1.2-6.7); HCT 26.3 % (36.0-46.0); Immature Grans % 0.5; Lymphocytes % 6.5; MCH 38.1 pg (27.0-33.0); MCHC 34.2 % (32.0-36.0); MCV 111 fL (80-95); MPV 10.1 fL (8.0-11.0); Monocytes % 11.3; Neutrophils % 79.7; Platelet Count 262 10^3/uL (130-400); RBC 2.36 10^6/uL (3.93-5.22); RDW 16.4 % (11.7-14.6); RDW-SD 66.4 fL; WBC 6.28 10^3/uL (4.4-10.8)
[2022-10-19 10:55] LABS: ALT 62 U/L (14-59); AST 60 U/L (15-37); Albumin 2.4 g/dL (3.4-5.0); Alkaline Phosphatase 107 U/L (46-116); Anion Gap 9.5 mmol/L (3-11); BUN 12 mg/dL (7-18); Bilirubin, Total 0.7 mg/dL (0.2-1.0); CO2 25.5 mmol/L (21.0-32.0); CREATININE 0.9 mg/dL (0.55-1.02); Calcium 8.7 mg/dL (8.5-10.1); Chloride 98 mmol/L (98-107); Estimated GFR 70.51 (mL/min/1.73m2); FREE T4 1.36 ng/dL (0.76-1.46); Glucose 132 mg/dL (74-106); Magnesium 1.6 mg/dL (1.8-2.4); Potassium 3.9 mmol/L (3.5-5.1); Sodium 133 mmol/L (136-145); TSH 1.19 uIU/mL (0.36-3.74); Total Protein 6.3 g/dL (6.4-8.2)
== END 2022-10-19 23:59 | disposition home or self-care (01) ==
LOC: INF 03:16
PROVIDERS: Nurse Practitioner Family; Visit Provider Internal Medicine Medical Oncology
DX: Z79.899 Other long term (current) drug therapy (principal); Z45.2 Encounter for adjustment and management of vascular access device; C34.32 Malignant neoplasm of lower lobe, left bronchus or lung; E83.42 Hypomagnesemia
CPT/HCPCS: 36591; 80053; 83735; 84439; 84443; 85025

== ENCOUNTER 2022-11-07 04:00 | Outpatient (RCR) | payer MEDICARE, SELFPAY ==
[2022-11-07] MEDS: Normal Saline Flush 10 ML SYR IVP (08:10)
[2022-11-07 08:41] LABS: Abs Immature Grans 0.07 10^3/uL (0.0-0.06); Absolute Basophil Count 0.02 10^3/uL (0.0-0.2); Absolute Lymphocyte Count 0.19 10^3/uL (1.2-3.4); Absolute Monocyte Count 0.43 10^3/uL (0.1-0.8); Absolute Neutrophil Count 4.32 10^3/uL (1.2-6.7); Basophils % 0.4; HCT 29.4 % (36.0-46.0); HGB 10.3 g/dL (11.2-15.7); Immature Grans % 1.4; Lymphocytes % 3.8; MCV 100 fL (80-95); MPV 10.5 fL (8.0-11.0); Monocytes % 8.5; Neutrophils % 85.9; Platelet Count 186 10^3/uL (130-400); RBC 2.94 10^6/uL (3.93-5.22); RDW 21.9 % (11.7-14.6); RDW-SD 75.8 fL; WBC 5.03 10^3/uL (4.4-10.8)
[2022-11-07 09:05] LABS: ALT 53 U/L (14-59); AST 48 U/L (15-37); Albumin 2.4 g/dL (3.4-5.0); Alkaline Phosphatase 97 U/L (46-116); BUN 13 mg/dL (7-18); Bilirubin, Total 1.1 mg/dL (0.2-1.0); CREATININE 0.7 mg/dL (0.55-1.02); Calcium 9.1 mg/dL (8.5-10.1); Chloride 102 mmol/L (98-107); Estimated GFR 95.32 (mL/min/1.73m2); FREE T4 1.34 ng/dL (0.76-1.46); Glucose 161 mg/dL (74-106); Magnesium 1.6 mg/dL (1.8-2.4); Potassium 3.7 mmol/L (3.5-5.1); Sodium 136 mmol/L (136-145); TSH 0.71 uIU/mL (0.36-3.74); Total Protein 5.6 g/dL (6.4-8.2)
[2022-11-07 09:13] LABS: Acanthocytes 2+; Diff Comment Diff Reviewed
== END 2022-11-18 23:59 | disposition home or self-care (01) ==
LOC: INF 04:00
PROVIDERS: Visit Provider Internal Medicine Medical Oncology
DX: Z79.899 Other long term (current) drug therapy (principal); C34.32 Malignant neoplasm of lower lobe, left bronchus or lung; Z45.2 Encounter for adjustment and management of vascular access device
CPT/HCPCS: 36591; 80053; 83735; 84439; 84443; 85025

== ENCOUNTER 2022-11-28 01:57 | Outpatient (RCR) | payer MEDICARE, SELFPAY ==
[2022-11-28] MEDS: Normal Saline Flush 10 ML SYR IVP (08:19)
[2022-11-28 08:40] LABS: Abs Immature Grans 0.02 10^3/uL (0.0-0.06); Absolute Basophil Count 0.02 10^3/uL (0.0-0.2); Absolute Eosinophil Count 0.04 10^3/uL (0.0-0.7); Absolute Lymphocyte Count 0.35 10^3/uL (1.2-3.4); Absolute Monocyte Count 0.37 10^3/uL (0.1-0.8); Absolute Neutrophil Count 5.35 10^3/uL (1.2-6.7); Basophils % 0.3; Eosinophils % 0.7; HCT 34.7 % (36.0-46.0); Immature Grans % 0.3; Lymphocytes % 5.7; MCH 37.7 pg (27.0-33.0); MCHC 34.6 % (32.0-36.0); MCV 109 fL (80-95); MPV 9.7 fL (8.0-11.0); RBC 3.18 10^6/uL (3.93-5.22); RDW 25.2 % (11.7-14.6); WBC 6.15 10^3/uL (4.4-10.8)
[2022-11-28 08:51] LABS: Diff Comment Diff Reviewed; Platelet Count 74 10^3/uL (130-400); RBC Morphology Normal
[2022-11-28 09:22] LABS: ALT 111 U/L (14-59); AST 48 U/L (15-37); Albumin 2.7 g/dL (3.4-5.0); Alkaline Phosphatase 180 U/L (46-116); Anion Gap 10.7 mmol/L (3-11); BUN 17 mg/dL (7-18); Bilirubin, Total 1.1 mg/dL (0.2-1.0); CO2 25.3 mmol/L (21.0-32.0); CREATININE 0.8 mg/dL (0.55-1.02); Calcium 8.9 mg/dL (8.5-10.1); Chloride 100 mmol/L (98-107); Estimated GFR 81.21 (mL/min/1.73m2); FREE T4 1.03 ng/dL (0.76-1.46); Glucose 138 mg/dL (74-106); Magnesium 1.4 mg/dL (1.8-2.4); Potassium 3.6 mmol/L (3.5-5.1); Sodium 136 mmol/L (136-145); TSH 1.32 uIU/mL (0.36-3.74); Total Protein 5.4 g/dL (6.4-8.2)
== END 2022-12-19 23:59 | disposition home or self-care (01) ==
LOC: INF 01:57
PROVIDERS: Nurse Practitioner Family; Visit Provider Internal Medicine Medical Oncology
DX: Z79.899 Other long term (current) drug therapy (principal); C34.32 Malignant neoplasm of lower lobe, left bronchus or lung; E83.42 Hypomagnesemia; Z45.2 Encounter for adjustment and management of vascular access device
CPT/HCPCS: 36591; 80053; 83735; 84439; 84443; 85025

== ENCOUNTER 2023-01-16 02:08 | Outpatient (RCR) | payer MEDICARE, SELFPAY ==
[2023-01-16] MEDS: Normal Saline Flush 10 ML SYR IVP (13:09)
[2023-01-16 13:48] LABS: Abs Immature Grans 0.04 10^3/uL (0.0-0.06); Absolute Basophil Count 0.07 10^3/uL (0.0-0.2); Absolute Eosinophil Count 0.09 10^3/uL (0.0-0.7); Absolute Lymphocyte Count 0.92 10^3/uL (1.2-3.4); Absolute Monocyte Count 0.52 10^3/uL (0.1-0.8); Absolute Neutrophil Count 5.54 10^3/uL (1.2-6.7); Eosinophils % 1.3; HCT 34.6 % (36.0-46.0); HGB 11.6 g/dL (11.2-15.7); Immature Grans % 0.6; Lymphocytes % 12.8; MCHC 33.5 % (32.0-36.0); MCV 113 fL (80-95); Monocytes % 7.2; Neutrophils % 77.1; Platelet Count 213 10^3/uL (130-400); RBC 3.05 10^6/uL (3.93-5.22); RDW 13.1 % (11.7-14.6); WBC 7.18 10^3/uL (4.4-10.8)
[2023-01-16 14:06] LABS: Diff Comment RBC Morph Reviewed; Macrocytosis 2+
[2023-01-16 14:15] LABS: ALT 19 U/L (14-59); AST 18 U/L (15-37); Albumin 2.7 g/dL (3.4-5.0); Alkaline Phosphatase 90 U/L (46-116); Anion Gap 8.4 mmol/L (3-11); BUN 11 mg/dL (7-18); Bilirubin, Total 0.6 mg/dL (0.2-1.0); CO2 27.6 mmol/L (21.0-32.0); CREATININE 0.7 mg/dL (0.55-1.02); Calcium 9.4 mg/dL (8.5-10.1); Chloride 101 mmol/L (98-107); Estimated GFR 95.32 (mL/min/1.73m2); FREE T4 1.38 ng/dL (0.76-1.46); Glucose 168 mg/dL (74-106); Magnesium 1.7 mg/dL (1.8-2.4); Potassium 3.9 mmol/L (3.5-5.1); Sodium 137 mmol/L (136-145); TSH 2.02 uIU/mL (0.36-3.74); Total Protein 6.3 g/dL (6.4-8.2)
== END 2023-01-19 23:59 | disposition home or self-care (01) ==
LOC: INF 02:08
PROVIDERS: Visit Provider Internal Medicine Medical Oncology
DX: Z79.899 Other long term (current) drug therapy (principal); C34.32 Malignant neoplasm of lower lobe, left bronchus or lung; Z45.2 Encounter for adjustment and management of vascular access device
CPT/HCPCS: 36591; 80053; 83735; 84439; 84443; 85025

== ENCOUNTER 2023-02-13 01:56 | Outpatient (RCR) | payer MEDICARE, SELFPAY ==
[2023-02-13] MEDS: Normal Saline Flush 10 ML SYR IVP (13:07)
[2023-02-13 13:53] LABS: Abs Immature Grans 0.02 10^3/uL (0.0-0.06); Absolute Basophil Count 0.06 10^3/uL (0.0-0.2); Absolute Eosinophil Count 0.16 10^3/uL (0.0-0.7); Absolute Lymphocyte Count 0.86 10^3/uL (1.2-3.4); Absolute Monocyte Count 0.62 10^3/uL (0.1-0.8); Absolute Neutrophil Count 5.57 10^3/uL (1.2-6.7); Basophils % 0.8; Eosinophils % 2.2; HGB 12.3 g/dL (11.2-15.7); Immature Grans % 0.3; Lymphocytes % 11.8; MCH 34.6 pg (27.0-33.0); MCHC 33.2 % (32.0-36.0); MCV 104 fL (80-95); Monocytes % 8.5; Neutrophils % 76.4; Platelet Count 266 10^3/uL (130-400); RBC 3.55 10^6/uL (3.93-5.22); RDW 11.9 % (11.7-14.6); RDW-SD 45.9 fL; WBC 7.29 10^3/uL (4.4-10.8)
[2023-02-13 14:21] LABS: ALT 14 U/L (14-59); AST 18 U/L (15-37); Alkaline Phosphatase 79 U/L (46-116); Anion Gap 8.2 mmol/L (3-11); BUN 11 mg/dL (7-18); Bilirubin, Total 0.4 mg/dL (0.2-1.0); CO2 27.8 mmol/L (21.0-32.0); CREATININE 0.8 mg/dL (0.55-1.02); Calcium 9.9 mg/dL (8.5-10.1); Chloride 101 mmol/L (98-107); Estimated GFR 81.21 (mL/min/1.73m2); FREE T4 1.31 ng/dL (0.76-1.46); Glucose 109 mg/dL (74-106); Magnesium 1.6 mg/dL (1.8-2.4); Potassium 3.8 mmol/L (3.5-5.1); Sodium 137 mmol/L (136-145); TSH 2.52 uIU/mL (0.36-3.74); Total Protein 6.8 g/dL (6.4-8.2)
== END 2023-02-18 23:59 | disposition home or self-care (01) ==
LOC: INF 01:56
PROVIDERS: Nurse Practitioner Family; Visit Provider Internal Medicine Medical Oncology
DX: Z79.899 Other long term (current) drug therapy (principal); C34.32 Malignant neoplasm of lower lobe, left bronchus or lung; Z45.2 Encounter for adjustment and management of vascular access device
CPT/HCPCS: 36591; 80053; 83735; 84439; 84443; 85025

== ENCOUNTER 2023-03-13 03:24 | Outpatient (RCR) | payer MEDICARE, SELFPAY ==
[2023-03-13] MEDS: Normal Saline Flush 10 ML SYR IVP (13:11)
[2023-03-13] MEDS: Heparin 500 UNITS/5 ML SYRINGE IV (13:11)
[2023-03-13 13:27] LABS: Abs Immature Grans 0.02 10^3/uL (0.0-0.06); Absolute Basophil Count 0.07 10^3/uL (0.0-0.2); Absolute Eosinophil Count 0.13 10^3/uL (0.0-0.7); Absolute Lymphocyte Count 0.89 10^3/uL (1.2-3.4); Absolute Monocyte Count 0.57 10^3/uL (0.1-0.8); Absolute Neutrophil Count 5.61 10^3/uL (1.2-6.7); Eosinophils % 1.8; HCT 39.1 % (36.0-46.0); HGB 13.1 g/dL (11.2-15.7); Immature Grans % 0.3; Lymphocytes % 12.2; MCH 32.8 pg (27.0-33.0); MCHC 33.5 % (32.0-36.0); MCV 98 fL (80-95); MPV 9.8 fL (8.0-11.0); Monocytes % 7.8; Neutrophils % 76.9; Platelet Count 247 10^3/uL (130-400); RBC 3.99 10^6/uL (3.93-5.22); RDW 11.9 % (11.7-14.6); RDW-SD 43.2 fL; WBC 7.29 10^3/uL (4.4-10.8)
[2023-03-13 13:54] LABS: ALT 20 U/L (14-59); AST 17 U/L (15-37); Alkaline Phosphatase 77 U/L (46-116); Anion Gap 7.2 mmol/L (3-11); BUN 15 mg/dL (7-18); Bilirubin, Total 0.4 mg/dL (0.2-1.0); CO2 27.8 mmol/L (21.0-32.0); CREATININE 0.8 mg/dL (0.55-1.02); Calcium 9.9 mg/dL (8.5-10.1); Chloride 102 mmol/L (98-107); Estimated GFR 81.21 (mL/min/1.73m2); FREE T4 1.31 ng/dL (0.76-1.46); Glucose 107 mg/dL (74-106); Magnesium 1.6 mg/dL (1.8-2.4); Potassium 3.8 mmol/L (3.5-5.1); Sodium 137 mmol/L (136-145); TSH 1.61 uIU/mL (0.36-3.74); Total Protein 6.9 g/dL (6.4-8.2)
== END 2023-03-21 23:59 | disposition home or self-care (01) ==
LOC: INF 03:24
PROVIDERS: Nurse Practitioner Family; Visit Provider Internal Medicine Medical Oncology
DX: Z79.899 Other long term (current) drug therapy (principal); C34.32 Malignant neoplasm of lower lobe, left bronchus or lung; Z45.2 Encounter for adjustment and management of vascular access device
CPT/HCPCS: 36591; 80053; 83735; 84439; 84443; 85025

== ENCOUNTER 2023-04-10 04:02 | Outpatient (RCR) | payer MEDICARE, SELFPAY ==
[2023-04-10] MEDS: Heparin 500 UNITS/5 ML SYRINGE IV (13:23)
[2023-04-10] MEDS: Normal Saline Flush 10 ML SYR IVP (13:23)
[2023-04-10 13:29] LABS: Abs Immature Grans 0.01 10^3/uL (0.0-0.06); Absolute Basophil Count 0.06 10^3/uL (0.0-0.2); Absolute Eosinophil Count 0.28 10^3/uL (0.0-0.7); Absolute Lymphocyte Count 1.19 10^3/uL (1.2-3.4); Absolute Monocyte Count 0.53 10^3/uL (0.1-0.8); Absolute Neutrophil Count 4.75 10^3/uL (1.2-6.7); Basophils % 0.9; Eosinophils % 4.1; HCT 38.3 % (36.0-46.0); HGB 13.1 g/dL (11.2-15.7); Immature Grans % 0.1; Lymphocytes % 17.4; MCH 32.2 pg (27.0-33.0); MCHC 34.2 % (32.0-36.0); MCV 94 fL (80-95); MPV 10.2 fL (8.0-11.0); Monocytes % 7.8; Neutrophils % 69.7; Platelet Count 240 10^3/uL (130-400); RBC 4.07 10^6/uL (3.93-5.22); RDW 12.1 % (11.7-14.6); RDW-SD 42.4 fL; WBC 6.82 10^3/uL (4.4-10.8)
[2023-04-10 13:57] LABS: ALT 19 U/L (14-59); AST 16 U/L (15-37); Alkaline Phosphatase 77 U/L (46-116); Anion Gap 4.4 mmol/L (3-11); BUN 11 mg/dL (7-18); Bilirubin, Total 0.5 mg/dL (0.2-1.0); CO2 30.6 mmol/L (21.0-32.0); CREATININE 0.7 mg/dL (0.55-1.02); Calcium 9.9 mg/dL (8.5-10.1); Chloride 101 mmol/L (98-107); Estimated GFR 95.32 (mL/min/1.73m2); FREE T4 1.27 ng/dL (0.76-1.46); Glucose 103 mg/dL (74-106); Magnesium 1.9 mg/dL (1.8-2.4); Potassium 3.4 mmol/L (3.5-5.1); Sodium 136 mmol/L (136-145); TSH 1.92 uIU/mL (0.36-3.74)
== END 2023-04-20 23:59 | disposition home or self-care (01) ==
LOC: INF 04:02
PROVIDERS: Visit Provider Internal Medicine Medical Oncology
DX: C34.32 Malignant neoplasm of lower lobe, left bronchus or lung (principal); E83.42 Hypomagnesemia; Z79.899 Other long term (current) drug therapy; Z45.2 Encounter for adjustment and management of vascular access device
CPT/HCPCS: 36591; 80053; 83735; 84439; 84443; 85025

== ENCOUNTER 2023-05-08 02:01 | Outpatient (RCR) | payer MEDICARE, SELFPAY ==
[2023-05-08 11:07] LABS: Abs Immature Grans 0.03 10^3/uL (0.0-0.06); Absolute Basophil Count 0.07 10^3/uL (0.0-0.2); Absolute Eosinophil Count 0.93 10^3/uL (0.0-0.7); Absolute Lymphocyte Count 1.29 10^3/uL (1.2-3.4); Absolute Monocyte Count 0.61 10^3/uL (0.1-0.8); Absolute Neutrophil Count 5.25 10^3/uL (1.2-6.7); Basophils % 0.9; Eosinophils % 11.4; HCT 37.8 % (36.0-46.0); HGB 12.6 g/dL (11.2-15.7); Immature Grans % 0.4; Lymphocytes % 15.8; MCH 31.2 pg (27.0-33.0); MCHC 33.3 % (32.0-36.0); MCV 94 fL (80-95); MPV 10.1 fL (8.0-11.0); Monocytes % 7.5; Platelet Count 233 10^3/uL (130-400); RBC 4.04 10^6/uL (3.93-5.22); RDW 13.1 % (11.7-14.6); RDW-SD 44.7 fL; WBC 8.18 10^3/uL (4.4-10.8)
[2023-05-08 11:35] LABS: ALT 21 U/L (14-59); AST 17 U/L (15-37); Alkaline Phosphatase 81 U/L (46-116); Anion Gap 6.9 mmol/L (3-11); BUN 13 mg/dL (7-18); Bilirubin, Total 0.4 mg/dL (0.2-1.0); CO2 30.1 mmol/L (21.0-32.0); CREATININE 0.7 mg/dL (0.55-1.02); Calcium 9.7 mg/dL (8.5-10.1); Chloride 102 mmol/L (98-107); Estimated GFR 95.32 (mL/min/1.73m2); FREE T4 1.29 ng/dL (0.76-1.46); Glucose 133 mg/dL (74-106); Magnesium 1.9 mg/dL (1.8-2.4); Potassium 3.8 mmol/L (3.5-5.1); Sodium 139 mmol/L (136-145); TSH 1.56 uIU/mL (0.36-3.74); Total Protein 6.8 g/dL (6.4-8.2)
[2023-05-08] MEDS: Normal Saline Flush 10 ML SYR IVP (11:51)
[2023-05-08] MEDS: Heparin 500 UNITS/5 ML SYRINGE IV (11:51)
== END 2023-05-21 23:59 | disposition home or self-care (01) ==
LOC: INF 02:01
PROVIDERS: Nurse Practitioner Family; Visit Provider Internal Medicine Medical Oncology
DX: C34.32 Malignant neoplasm of lower lobe, left bronchus or lung (principal); E83.42 Hypomagnesemia; Z79.899 Other long term (current) drug therapy; Z45.2 Encounter for adjustment and management of vascular access device
CPT/HCPCS: 36591; 80053; 83735; 84439; 84443; 85025

== ENCOUNTER 2023-06-19 03:05 | Outpatient (RCR) | payer MEDICARE, SELFPAY ==
[2023-06-12] MEDS: Normal Saline Flush 10 ML SYR IVP (09:39)
[2023-06-12 10:00] LABS: Abs Immature Grans 0.03 10^3/uL (0.0-0.06); Absolute Basophil Count 0.07 10^3/uL (0.0-0.2); Absolute Eosinophil Count 0.86 10^3/uL (0.0-0.7); Absolute Lymphocyte Count 1.12 10^3/uL (1.2-3.4); Absolute Monocyte Count 0.47 10^3/uL (0.1-0.8); Absolute Neutrophil Count 5.25 10^3/uL (1.2-6.7); Basophils % 0.9; HCT 37.4 % (36.0-46.0); Immature Grans % 0.4; Lymphocytes % 14.4; MCH 31.8 pg (27.0-33.0); MCHC 34.8 % (32.0-36.0); MCV 91 fL (80-95); MPV 9.8 fL (8.0-11.0); Neutrophils % 67.3; Platelet Count 245 10^3/uL (130-400); RBC 4.09 10^6/uL (3.93-5.22); RDW 12.8 % (11.7-14.6); RDW-SD 43.1 fL
[2023-06-12 10:21] LABS: ALT 15 U/L (14-59); AST 15 U/L (15-37); Alkaline Phosphatase 88 U/L (46-116); Anion Gap 8.2 mmol/L (3-11); BUN 17 mg/dL (7-18); Bilirubin, Total 0.6 mg/dL (0.2-1.0); CO2 31.8 mmol/L (21.0-32.0); CREATININE 0.8 mg/dL (0.55-1.02); Calcium 9.7 mg/dL (8.5-10.1); Chloride 99 mmol/L (98-107); Estimated GFR 81.21 (mL/min/1.73m2); FREE T4 1.13 ng/dL (0.76-1.46); Glucose 176 mg/dL (74-106); Magnesium 1.7 mg/dL (1.8-2.4); Potassium 3.5 mmol/L (3.5-5.1); Sodium 139 mmol/L (136-145); TSH 1.71 uIU/mL (0.36-3.74)
[2023-06-19] MEDS: Normal Saline Flush 10 ML SYR IVP (07:35)
[2023-06-19 08:09] LABS: Abs Immature Grans 0.03 10^3/uL (0.0-0.06); Absolute Basophil Count 0.07 10^3/uL (0.0-0.2); Absolute Eosinophil Count 0.69 10^3/uL (0.0-0.7); Absolute Lymphocyte Count 0.96 10^3/uL (1.2-3.4); Absolute Monocyte Count 0.49 10^3/uL (0.1-0.8); Absolute Neutrophil Count 5.65 10^3/uL (1.2-6.7); Basophils % 0.9; Eosinophils % 8.7; HCT 37.9 % (36.0-46.0); HGB 12.8 g/dL (11.2-15.7); Immature Grans % 0.4; Lymphocytes % 12.2; MCH 31.2 pg (27.0-33.0); MCHC 33.8 % (32.0-36.0); MCV 92 fL (80-95); MPV 9.7 fL (8.0-11.0); Monocytes % 6.2; Neutrophils % 71.6; Platelet Count 221 10^3/uL (130-400); RDW 12.7 % (11.7-14.6); WBC 7.89 10^3/uL (4.4-10.8)
[2023-06-19 08:47] LABS: ALT 18 U/L (14-59); AST 17 U/L (15-37); Alkaline Phosphatase 83 U/L (46-116); Anion Gap 7.8 mmol/L (3-11); BUN 20 mg/dL (7-18); Bilirubin, Total 0.5 mg/dL (0.2-1.0); CO2 31.2 mmol/L (21.0-32.0); CREATININE 0.9 mg/dL (0.55-1.02); Calcium 9.9 mg/dL (8.5-10.1); Chloride 100 mmol/L (98-107); Estimated GFR 70.51 (mL/min/1.73m2); FREE T4 1.18 ng/dL (0.76-1.46); Glucose 187 mg/dL (74-106); Magnesium 1.8 mg/dL (1.8-2.4); Potassium 3.4 mmol/L (3.5-5.1); Sodium 139 mmol/L (136-145); TSH 1.77 uIU/mL (0.36-3.74); Total Protein 6.9 g/dL (6.4-8.2)
== END 2023-06-21 23:59 | disposition home or self-care (01) ==
LOC: INF 03:05
PROVIDERS: Visit Provider Internal Medicine Medical Oncology
DX: C34.32 Malignant neoplasm of lower lobe, left bronchus or lung (principal); E83.42 Hypomagnesemia; Z79.899 Other long term (current) drug therapy; Z45.2 Encounter for adjustment and management of vascular access device
CPT/HCPCS: 36591; 80053; 83735; 84439; 84443; 85025

== ENCOUNTER 2023-07-19 02:35 | Outpatient (RCR) | payer MEDICARE, SELFPAY ==
[2023-06-26 07:58] LABS: Abs Immature Grans 0.01 10^3/uL (0.0-0.06); Absolute Basophil Count 0.03 10^3/uL (0.0-0.2); Absolute Eosinophil Count 0.04 10^3/uL (0.0-0.7); Absolute Lymphocyte Count 0.55 10^3/uL (1.2-3.4); Absolute Monocyte Count 0.21 10^3/uL (0.1-0.8); Absolute Neutrophil Count 3.11 10^3/uL (1.2-6.7); Basophils % 0.8; HCT 33.8 % (36.0-46.0); HGB 11.7 g/dL (11.2-15.7); Immature Grans % 0.3; Lymphocytes % 13.9; MCH 31.5 pg (27.0-33.0); MCHC 34.6 % (32.0-36.0); MCV 91 fL (80-95); MPV 9.3 fL (8.0-11.0); Monocytes % 5.3; Neutrophils % 78.7; Platelet Count 142 10^3/uL (130-400); RBC 3.72 10^6/uL (3.93-5.22); WBC 3.95 10^3/uL (4.4-10.8)
[2023-06-26] MEDS: Normal Saline Flush 10 ML SYR IVP (07:59)
[2023-06-26 08:24] LABS: ALT 22 U/L (14-59); AST 17 U/L (15-37); Albumin 2.7 g/dL (3.4-5.0); Alkaline Phosphatase 81 U/L (46-116); Anion Gap 6.8 mmol/L (3-11); BUN 19 mg/dL (7-18); Bilirubin, Total 0.5 mg/dL (0.2-1.0); CO2 31.2 mmol/L (21.0-32.0); CREATININE 0.8 mg/dL (0.55-1.02); Calcium 9.2 mg/dL (8.5-10.1); Chloride 100 mmol/L (98-107); Estimated GFR 81.21 (mL/min/1.73m2); FREE T4 1.26 ng/dL (0.76-1.46); Glucose 188 mg/dL (74-106); Magnesium 1.9 mg/dL (1.8-2.4); Potassium 3.4 mmol/L (3.5-5.1); Sodium 138 mmol/L (136-145); TSH 1.79 uIU/mL (0.36-3.74); Total Protein 6.7 g/dL (6.4-8.2)
[2023-07-12] MEDS: Normal Saline Flush 10 ML SYR IVP (07:38)
[2023-07-12 08:08] LABS: Abs Immature Grans 0.03 10^3/uL (0.0-0.06); Absolute Basophil Count 0.05 10^3/uL (0.0-0.2); Absolute Eosinophil Count 0.11 10^3/uL (0.0-0.7); Absolute Lymphocyte Count 0.66 10^3/uL (1.2-3.4); Absolute Monocyte Count 0.72 10^3/uL (0.1-0.8); Basophils % 1.4; Eosinophils % 3.2; HCT 33.3 % (36.0-46.0); HGB 11.1 g/dL (11.2-15.7); Immature Grans % 0.9; MCH 31.3 pg (27.0-33.0); MCHC 33.3 % (32.0-36.0); MCV 94 fL (80-95); MPV 9.4 fL (8.0-11.0); Monocytes % 20.7; Neutrophils % 54.8; Platelet Count 500 10^3/uL (130-400); RBC 3.55 10^6/uL (3.93-5.22); RDW 14.1 % (11.7-14.6); RDW-SD 44.7 fL; WBC 3.47 10^3/uL (4.4-10.8)
[2023-07-12 08:34] LABS: ALT 42 U/L (14-59); AST 23 U/L (15-37); Albumin 2.8 g/dL (3.4-5.0); Alkaline Phosphatase 96 U/L (46-116); Anion Gap 4.9 mmol/L (3-11); BUN 15 mg/dL (7-18); Bilirubin, Total 0.3 mg/dL (0.2-1.0); CO2 31.1 mmol/L (21.0-32.0); CREATININE 0.9 mg/dL (0.55-1.02); Calcium 9.5 mg/dL (8.5-10.1); Chloride 101 mmol/L (98-107); Estimated GFR 70.51 (mL/min/1.73m2); FREE T4 1.08 ng/dL (0.76-1.46); Glucose 162 mg/dL (74-106); Magnesium 1.8 mg/dL (1.8-2.4); Potassium 3.9 mmol/L (3.5-5.1); Sodium 137 mmol/L (136-145); TSH 2.05 uIU/mL (0.36-3.74); Total Protein 6.8 g/dL (6.4-8.2)
[2023-07-19] MEDS: Normal Saline Flush 10 ML SYR IVP (12:02)
[2023-07-19 12:28] LABS: Abs Immature Grans 0.06 10^3/uL (0.0-0.06); Absolute Basophil Count 0.06 10^3/uL (0.0-0.2); Absolute Lymphocyte Count 0.98 10^3/uL (1.2-3.4); Absolute Monocyte Count 0.85 10^3/uL (0.1-0.8); Absolute Neutrophil Count 3.89 10^3/uL (1.2-6.7); HCT 32.4 % (36.0-46.0); HGB 11.2 g/dL (11.2-15.7); Lymphocytes % 16.8; MCH 31.5 pg (27.0-33.0); MCHC 34.6 % (32.0-36.0); MCV 91 fL (80-95); MPV 9.4 fL (8.0-11.0); Monocytes % 14.6; Neutrophils % 66.6; Nucleated RBC 0.9 % (0.0-0.3); Platelet Count 328 10^3/uL (130-400); RBC 3.56 10^6/uL (3.93-5.22); RDW 13.3 % (11.7-14.6); RDW-SD 43.3 fL; WBC 5.84 10^3/uL (4.4-10.8)
[2023-07-19 12:57] LABS: ALT 54 U/L (14-59); AST 37 U/L (15-37); Alkaline Phosphatase 100 U/L (46-116); Anion Gap 8.6 mmol/L (3-11); BUN 17 mg/dL (7-18); Bilirubin, Total 0.4 mg/dL (0.2-1.0); CO2 33.4 mmol/L (21.0-32.0); CREATININE 0.9 mg/dL (0.55-1.02); Calcium 9.6 mg/dL (8.5-10.1); Chloride 94 mmol/L (98-107); Estimated GFR 70.51 (mL/min/1.73m2); FREE T4 1.36 ng/dL (0.76-1.46); Glucose 124 mg/dL (74-106); Magnesium 2.1 mg/dL (1.8-2.4); Sodium 136 mmol/L (136-145); TSH 1.72 uIU/Ml (0.36-3.74); Total Protein 7.3 g/dL (6.4-8.2)
== END 2023-07-20 23:59 | disposition home or self-care (01) ==
LOC: INF 02:35
PROVIDERS: Nurse Practitioner Family; Visit Provider Internal Medicine Medical Oncology
DX: C34.32 Malignant neoplasm of lower lobe, left bronchus or lung (principal); E83.42 Hypomagnesemia; Z79.899 Other long term (current) drug therapy
CPT/HCPCS: 36591; 80053; 83735; 84439; 84443; 85025

== ENCOUNTER 2023-08-09 07:30 | Outpatient (RCR) | payer MEDICARE, SELFPAY ==
[2023-08-02] MEDS: Normal Saline Flush 10 ML SYR IVP (07:30)
[2023-08-02 08:00] LABS: Abs Immature Grans 0.05 10^3/uL (0.0-0.06); Absolute Basophil Count 0.02 10^3/uL (0.0-0.2); Absolute Eosinophil Count 0.18 10^3/uL (0.0-0.7); Absolute Lymphocyte Count 0.74 10^3/uL (1.2-3.4); Absolute Monocyte Count 0.66 10^3/uL (0.1-0.8); Absolute Neutrophil Count 5.49 10^3/uL (1.2-6.7); Basophils % 0.3; Eosinophils % 2.5; HCT 31.4 % (36.0-46.0); HGB 10.3 g/dL (11.2-15.7); Immature Grans % 0.7; Lymphocytes % 10.4; MCH 31.2 pg (27.0-33.0); MCHC 32.8 % (32.0-36.0); MCV 95 fL (80-95); MPV 9.7 fL (8.0-11.0); Monocytes % 9.2; Neutrophils % 76.9; Platelet Count 398 10^3/uL (130-400); RDW 16.8 % (11.7-14.6); RDW-SD 53.5 fL; WBC 7.14 10^3/uL (4.4-10.8)
[2023-08-02 08:18] LABS: ALT 49 U/L (14-59); AST 29 U/L (15-37); Albumin 2.8 g/dL (3.4-5.0); Alkaline Phosphatase 98 U/L (46-116); BUN 18 mg/dL (7-18); Bilirubin, Total 0.4 mg/dL (0.2-1.0); CREATININE 0.8 mg/dL (0.55-1.02); Calcium 9.6 mg/dL (8.5-10.1); Chloride 99 mmol/L (98-107); Estimated GFR 81.21 (mL/min/1.73m2); Glucose 186 mg/dL (74-106); Magnesium 1.8 mg/dL (1.8-2.4); Potassium 3.8 mmol/L (3.5-5.1); Sodium 137 mmol/L (136-145); Total Protein 6.7 g/dL (6.4-8.2)
[2023-08-09] MEDS: Normal Saline Flush 10 ML SYR IVP (07:56)
[2023-08-09 08:02] LABS: Abs Immature Grans 0.05 10^3/uL (0.0-0.06); Absolute Basophil Count 0.06 10^3/uL (0.0-0.2); Absolute Eosinophil Count 0.03 10^3/uL (0.0-0.7); Absolute Lymphocyte Count 0.77 10^3/uL (1.2-3.4); Absolute Monocyte Count 0.66 10^3/uL (0.1-0.8); Absolute Neutrophil Count 2.09 10^3/uL (1.2-6.7); Basophils % 1.6; Eosinophils % 0.8; HCT 30.7 % (36.0-46.0); HGB 10.1 g/dL (11.2-15.7); Immature Grans % 1.4; MCH 31.7 pg (27.0-33.0); MCHC 32.9 % (32.0-36.0); MCV 96 fL (80-95); MPV 9.3 fL (8.0-11.0); Neutrophils % 57.2; Nucleated RBC 1.1 % (0.0-0.3); Platelet Count 389 10^3/uL (130-400); RBC 3.19 10^6/uL (3.93-5.22); RDW 15.9 % (11.7-14.6); RDW-SD 55.7 fL; WBC 3.66 10^3/uL (4.4-10.8)
[2023-08-09 08:28] LABS: ALT 71 U/L (14-59); AST 51 U/L (15-37); Albumin 2.8 g/dL (3.4-5.0); Alkaline Phosphatase 102 U/L (46-116); Anion Gap 9.1 mmol/L (3-11); BUN 15 mg/dL (7-18); Bilirubin, Total 0.4 mg/dL (0.2-1.0); CO2 27.9 mmol/L (21.0-32.0); CREATININE 0.9 mg/dL (0.55-1.02); Calcium 9.4 mg/dL (8.5-10.1); Chloride 100 mmol/L (98-107); Estimated GFR 70.07 (mL/min/1.73m2); Glucose 148 mg/dL (74-106); Potassium 4.1 mmol/L (3.5-5.1); Sodium 137 mmol/L (136-145); Total Protein 6.8 g/dL (6.4-8.2)
== END 2023-08-20 23:59 | disposition home or self-care (01) ==
LOC: INF 07:30
PROVIDERS: Nurse Practitioner Family; Visit Provider Internal Medicine Medical Oncology
DX: C34.32 Malignant neoplasm of lower lobe, left bronchus or lung (principal); Z79.899 Other long term (current) drug therapy; Z45.2 Encounter for adjustment and management of vascular access device
CPT/HCPCS: 36591; 80053; 83735; 85025

== ENCOUNTER 2023-09-11 04:53 | Outpatient (RCR) | payer MEDICARE, SELFPAY ==
[2023-08-21] MEDS: Normal Saline Flush 10 ML SYR IVP (14:17)
[2023-09-04] MEDS: Normal Saline Flush 10 ML SYR IVP (11:03)
[2023-09-04 11:22] LABS: Abs Immature Grans 0.02 10^3/uL (0.0-0.06); Absolute Basophil Count 0.11 10^3/uL (0.0-0.2); Absolute Lymphocyte Count 0.88 10^3/uL (1.2-3.4); Absolute Monocyte Count 0.99 10^3/uL (0.1-0.8); Basophils % 1.3; Eosinophils % 2.4; HCT 36.4 % (36.0-46.0); HGB 11.7 g/dL (11.2-15.7); Immature Grans % 0.2; Lymphocytes % 10.5; MCH 31.2 pg (27.0-33.0); MCHC 32.1 % (32.0-36.0); MCV 97 fL (80-95); MPV 10.1 fL (8.0-11.0); Monocytes % 11.8; Neutrophils % 73.8; Platelet Count 381 10^3/uL (130-400); RBC 3.75 10^6/uL (3.93-5.22); RDW 16.1 % (11.7-14.6); RDW-SD 57.4 fL
[2023-09-04 11:48] LABS: ALT 27 U/L (14-59); AST 22 U/L (15-37); Alkaline Phosphatase 96 U/L (46-116); Anion Gap 7.9 mmol/L (3-11); BUN 19 mg/dL (7-18); Bilirubin, Total 0.5 mg/dL (0.2-1.0); CO2 31.1 mmol/L (21.0-32.0); CREATININE 0.9 mg/dL (0.55-1.02); Calcium 9.4 mg/dL (8.5-10.1); Chloride 99 mmol/L (98-107); Estimated GFR 70.07 (mL/min/1.73m2); FREE T4 1.32 ng/dL (0.76-1.46); Glucose 101 mg/dL (74-106); Magnesium 2.1 mg/dL (1.8-2.4); Potassium 3.9 mmol/L (3.5-5.1); Sodium 138 mmol/L (136-145); TSH 1.92 uIU/Ml (0.36-3.74)
[2023-09-11] MEDS: Normal Saline Flush 10 ML SYR IVP (12:59)
[2023-09-11 13:29] LABS: Abs Immature Grans 0.02 10^3/uL (0.0-0.06); Absolute Basophil Count 0.06 10^3/uL (0.0-0.2); Absolute Eosinophil Count 0.04 10^3/uL (0.0-0.7); Absolute Lymphocyte Count 0.69 10^3/uL (1.2-3.4); Absolute Monocyte Count 0.48 10^3/uL (0.1-0.8); Absolute Neutrophil Count 3.83 10^3/uL (1.2-6.7); Basophils % 1.2; Eosinophils % 0.8; HCT 32.3 % (36.0-46.0); HGB 10.7 g/dL (11.2-15.7); Immature Grans % 0.4; Lymphocytes % 13.5; MCH 31.5 pg (27.0-33.0); MCHC 33.1 % (32.0-36.0); MCV 95 fL (80-95); Monocytes % 9.4; Neutrophils % 74.7; Platelet Count 152 10^3/uL (130-400); RDW-SD 52.7 fL; WBC 5.12 10^3/uL (4.4-10.8)
[2023-09-11 13:52] LABS: ALT 61 U/L (14-59); AST 51 U/L (15-37); Albumin 2.7 g/dL (3.4-5.0); Alkaline Phosphatase 108 U/L (46-116); Anion Gap 8.4 mmol/L (3-11); BUN 14 mg/dL (7-18); Bilirubin, Total 0.4 mg/dL (0.2-1.0); CO2 29.6 mmol/L (21.0-32.0); CREATININE 0.9 mg/dL (0.55-1.02); Calcium 9.4 mg/dL (8.5-10.1); Chloride 97 mmol/L (98-107); Estimated GFR 70.07 (mL/min/1.73m2); FREE T4 1.42 ng/dL (0.76-1.46); Glucose 94 mg/dL (74-106); Magnesium 1.9 mg/dL (1.8-2.4); Sodium 135 mmol/L (136-145); Total Protein 6.9 g/dL (6.4-8.2)
== END 2023-09-19 23:59 | disposition home or self-care (01) ==
LOC: INF 04:53
PROVIDERS: Visit Provider Internal Medicine Medical Oncology
DX: Z79.899 Other long term (current) drug therapy (principal); C34.32 Malignant neoplasm of lower lobe, left bronchus or lung
CPT/HCPCS: 36591; 80053; 83735; 84439; 84443; 85025

== ENCOUNTER 2023-10-18 04:52 | Outpatient (RCR) | payer MEDICARE, SELFPAY ==
[2023-09-25] MEDS: Normal Saline Flush 10 ML SYR IVP (07:42)
[2023-09-25 07:57] LABS: Abs Immature Grans 0.02 10^3/uL (0.0-0.06); Absolute Basophil Count 0.01 10^3/uL (0.0-0.2); Absolute Eosinophil Count 0.07 10^3/uL (0.0-0.7); Absolute Lymphocyte Count 0.55 10^3/uL (1.2-3.4); Absolute Monocyte Count 0.79 10^3/uL (0.1-0.8); Absolute Neutrophil Count 3.99 10^3/uL (1.2-6.7); Basophils % 0.2 %; Eosinophils % 1.3 %; HCT 30.8 % (36.0-46.0); HGB 10.1 g/dL (11.2-15.7); Immature Grans % 0.4 %; Lymphocytes % 10.1 %; MCH 31.5 pg (27.0-33.0); MCHC 32.8 % (32.0-36.0); MCV 96 fL (80-95); MPV 10.1 fL (8.0-11.0); Monocytes % 14.5 %; Neutrophils % 73.5 %; Platelet Count 350 10^3/uL (130-400); RBC 3.21 10^6/uL (3.93-5.22); RDW 17.3 % (11.7-14.6); RDW-SD 55.7 fL; WBC 5.43 10^3/uL (4.4-10.8)
[2023-09-25 08:26] LABS: ALT 53 U/L (14-59); AST 41 U/L (15-37); Albumin 2.7 g/dL (3.4-5.0); Alkaline Phosphatase 96 U/L (46-116); Anion Gap 6.8 mmol/L (3-11); BUN 16 mg/dL (7-18); Bilirubin, Total 0.4 mg/dL (0.2-1.0); CO2 29.2 mmol/L (21.0-32.0); CREATININE 0.9 mg/dL (0.55-1.02); Calcium 9.4 mg/dL (8.5-10.1); Chloride 101 mmol/L (98-107); Estimated GFR 70.07 (mL/min/1.73m2); Glucose 141 mg/dL (74-106); Magnesium 1.6 mg/dL (1.8-2.4); Potassium 4.2 mmol/L (3.5-5.1); Sodium 137 mmol/L (136-145); TSH 2.21 uIU/Ml (0.36-3.74); Total Protein 6.6 g/dL (6.4-8.2)
[2023-10-02] MEDS: Normal Saline Flush 10 ML SYR IVP (12:34)
[2023-10-02 12:39] LABS: Abs Immature Grans 0.03 10^3/uL (0.0-0.06); HGB 9.9 g/dL (11.2-15.7); MCH 31.1 pg (27.0-33.0); MCV 94 fL (80-95); MPV 9.2 fL (8.0-11.0); Platelet Count 314 10^3/uL (130-400); RBC 3.18 10^6/uL (3.93-5.22); RDW 16.4 % (11.7-14.6); RDW-SD 56.5 fL; WBC 3.22 10^3/uL (4.4-10.8)
[2023-10-02 13:00] LABS: ALT 79 U/L (14-59); AST 69 U/L (15-37); Albumin 2.8 g/dL (3.4-5.0); Alkaline Phosphatase 102 U/L (46-116); Anion Gap 9.4 mmol/L (3-11); BUN 12 mg/dL (7-18); Bilirubin, Total 0.3 mg/dL (0.2-1.0); CO2 27.6 mmol/L (21.0-32.0); CREATININE 0.8 mg/dL (0.55-1.02); Calcium 9.4 mg/dL (8.5-10.1); Chloride 100 mmol/L (98-107); Estimated GFR 80.71 (mL/min/1.73m2); Glucose 100 mg/dL (74-106); Magnesium 1.7 mg/dL (1.8-2.4); Potassium 4.3 mmol/L (3.5-5.1); Sodium 137 mmol/L (136-145); Total Protein 6.7 g/dL (6.4-8.2)
[2023-10-02 13:02] LABS: Absolute Lymphocyte Count 0.61 10^3/uL (1.2-3.4); Absolute Monocyte Count 0.45 10^3/uL (0.1-0.8); Bands % 1 %; Diff Comment Manual Differential; Metamyelocytes % 2; RBC Morphology Normal
[2023-10-18] MEDS: Normal Saline Flush 10 ML SYR IVP (08:03)
[2023-10-18 08:42] LABS: Abs Immature Grans 0.03 10^3/uL (0.0-0.06); Absolute Basophil Count 0.02 10^3/uL (0.0-0.2); Absolute Eosinophil Count 0.13 10^3/uL (0.0-0.7); Absolute Lymphocyte Count 0.59 10^3/uL (1.2-3.4); Absolute Monocyte Count 1.08 10^3/uL (0.1-0.8); Basophils % 0.3 %; Eosinophils % 2.3 %; HCT 31.6 % (36.0-46.0); Immature Grans % 0.5 %; Lymphocytes % 10.3 %; MCH 30.7 pg (27.0-33.0); MCHC 31.6 % (32.0-36.0); MCV 97 fL (80-95); Monocytes % 18.8 %; Neutrophils % 67.8 %; Platelet Count 478 10^3/uL (130-400); RBC 3.26 10^6/uL (3.93-5.22); RDW 19.1 % (11.7-14.6); RDW-SD 66.9 fL; WBC 5.75 10^3/uL (4.4-10.8)
[2023-10-18 09:10] LABS: ALT 38 U/L (14-59); AST 28 U/L (15-37); Albumin 2.8 g/dL (3.4-5.0); Alkaline Phosphatase 101 U/L (46-116); Anion Gap 7.6 mmol/L (3-11); BUN 15 mg/dL (7-18); Bilirubin, Total 0.3 mg/dL (0.2-1.0); CO2 28.4 mmol/L (21.0-32.0); Calcium 9.2 mg/dL (8.5-10.1); Chloride 99 mmol/L (98-107); Estimated GFR 61.75 (mL/min/1.73m2); FREE T4 1.26 ng/dL (0.76-1.46); Glucose 145 mg/dL (74-106); Magnesium 1.8 mg/dL (1.8-2.4); Potassium 4.1 mmol/L (3.5-5.1); Sodium 135 mmol/L (136-145); TSH 1.92 uIU/Ml (0.36-3.74); Total Protein 6.8 g/dL (6.4-8.2)
== END 2023-10-20 23:59 | disposition home or self-care (01) ==
LOC: INF 04:52
PROVIDERS: Nurse Practitioner Family; Visit Provider Internal Medicine Medical Oncology
DX: C34.32 Malignant neoplasm of lower lobe, left bronchus or lung (principal); Z79.899 Other long term (current) drug therapy; Z45.2 Encounter for adjustment and management of vascular access device
CPT/HCPCS: 36591; 80053; 83735; 84439; 84443; 85025

== ENCOUNTER 2023-11-08 04:36 | Outpatient (RCR) | payer MEDICARE, SELFPAY ==
[2023-11-08 09:02] LABS: Abs Immature Grans 0.04 10^3/uL (0.0-0.06); Absolute Basophil Count 0.08 10^3/uL (0.0-0.2); Absolute Eosinophil Count 0.09 10^3/uL (0.0-0.7); Absolute Lymphocyte Count 0.74 10^3/uL (1.2-3.4); Absolute Monocyte Count 0.72 10^3/uL (0.1-0.8); Absolute Neutrophil Count 6.46 10^3/uL (1.2-6.7); Eosinophils % 1.1 %; HCT 32.5 % (36.0-46.0); HGB 10.5 g/dL (11.2-15.7); Immature Grans % 0.5 %; Lymphocytes % 9.1 %; MCH 28.5 pg (27.0-33.0); MCHC 32.3 % (32.0-36.0); MCV 88 fL (80-95); MPV 10.2 fL (8.0-11.0); Monocytes % 8.9 %; Neutrophils % 79.4 %; Platelet Count 308 10^3/uL (130-400); RBC 3.68 10^6/uL (3.93-5.22); RDW-SD 58.4 fL; WBC 8.13 10^3/uL (4.4-10.8)
[2023-11-08 09:28] LABS: ALT 32 U/L (14-59); AST 33 U/L (15-37); Albumin 2.3 g/dL (3.4-5.0); Alkaline Phosphatase 112 U/L (46-116); BUN 10 mg/dL (7-18); Bilirubin, Total 0.4 mg/dL (0.2-1.0); CREATININE 0.8 mg/dL (0.55-1.02); Calcium 9.1 mg/dL (8.5-10.1); Chloride 99 mmol/L (98-107); Estimated GFR 80.71 (mL/min/1.73m2); FREE T4 1.52 ng/dL (0.76-1.46); Glucose 131 mg/dL (74-106); Magnesium 1.6 mg/dL (1.8-2.4); Potassium 4.1 mmol/L (3.5-5.1); Sodium 134 mmol/L (136-145); TSH 1.01 uIU/Ml (0.36-3.74); Total Protein 6.8 g/dL (6.4-8.2)
[2023-11-08] MEDS: Normal Saline Flush 10 ML SYR IVP (10:17)
== END 2023-11-19 23:59 | disposition home or self-care (01) ==
LOC: INF 04:36
PROVIDERS: Nurse Practitioner Family; Visit Provider Internal Medicine Medical Oncology
DX: C34.32 Malignant neoplasm of lower lobe, left bronchus or lung (principal); Z79.899 Other long term (current) drug therapy
CPT/HCPCS: 36591; 80053; 83735; 84439; 84443; 85025

== ENCOUNTER 2023-12-18 01:46 | Outpatient (RCR) | payer MEDICARE, SELFPAY ==
[2023-11-27] MEDS: Normal Saline Flush 10 ML SYR IVP (08:38)
[2023-11-27 08:48] LABS: Abs Immature Grans 0.06 10^3/uL (0.0-0.06); Absolute Basophil Count 0.04 10^3/uL (0.0-0.2); Absolute Eosinophil Count 0.06 10^3/uL (0.0-0.7); Absolute Lymphocyte Count 0.54 10^3/uL (1.2-3.4); Absolute Monocyte Count 0.64 10^3/uL (0.1-0.8); Absolute Neutrophil Count 4.52 10^3/uL (1.2-6.7); Basophils % 0.7 %; HCT 33.1 % (36.0-46.0); HGB 10.3 g/dL (11.2-15.7); Lymphocytes % 9.2 %; MCH 27.9 pg (27.0-33.0); MCHC 31.1 % (32.0-36.0); MCV 90 fL (80-95); MPV 9.5 fL (8.0-11.0); Monocytes % 10.9 %; Neutrophils % 77.2 %; Platelet Count 326 10^3/uL (130-400); RBC 3.69 10^6/uL (3.93-5.22); RDW 21.6 % (11.7-14.6); RDW-SD 70.5 fL; WBC 5.86 10^3/uL (4.4-10.8)
[2023-11-27 09:21] LABS: ALT 24 U/L (14-59); AST 28 U/L (15-37); Albumin 2.4 g/dL (3.4-5.0); Alkaline Phosphatase 108 U/L (46-116); Anion Gap 6.8 mmol/L (3-11); BUN 10 mg/dL (7-18); Bilirubin, Total 0.45 mg/dL (0.2-1.0); CO2 29.2 mmol/L (21.0-32.0); CREATININE 0.9 mg/dL (0.55-1.02); Calcium 9.3 mg/dL (8.5-10.1); Chloride 97 mmol/L (98-107); Estimated GFR 70.07 (mL/min/1.73m2); Glucose 130 mg/dL (74-106); Magnesium 1.6 mg/dL (1.8-2.4); Potassium 3.8 mmol/L (3.5-5.1); Sodium 133 mmol/L (136-145); Total Protein 6.8 g/dL (6.4-8.2)
[2023-11-27 09:50] LABS: Anisocytosis 1+; Diff Comment RBC Morph Reviewed
[2023-12-18 08:43] LABS: Abs Immature Grans 0.04 10^3/uL (0.0-0.06); Absolute Basophil Count 0.06 10^3/uL (0.0-0.2); Absolute Eosinophil Count 0.08 10^3/uL (0.0-0.7); Absolute Monocyte Count 0.66 10^3/uL (0.1-0.8); Absolute Neutrophil Count 6.74 10^3/uL (1.2-6.7); Basophils % 0.7 %; HCT 33.2 % (36.0-46.0); HGB 10.6 g/dL (11.2-15.7); Immature Grans % 0.5 %; Lymphocytes % 7.3 %; MCH 27.6 pg (27.0-33.0); MCHC 31.9 % (32.0-36.0); MCV 87 fL (80-95); MPV 9.9 fL (8.0-11.0); Monocytes % 8.1 %; Neutrophils % 82.4 %; Platelet Count 309 10^3/uL (130-400); RBC 3.84 10^6/uL (3.93-5.22); RDW-SD 60.9 fL; WBC 8.18 10^3/uL (4.4-10.8)
[2023-12-18 09:05] LABS: ALT 29 U/L (14-59); AST 32 U/L (15-37); Albumin 2.5 g/dL (3.4-5.0); Alkaline Phosphatase 102 U/L (46-116); Anion Gap 7.2 mmol/L (3-11); BUN 8 mg/dL (7-18); Bilirubin, Total 0.41 mg/dL (0.2-1.0); CO2 28.8 mmol/L (21.0-32.0); CREATININE 0.9 mg/dL (0.55-1.02); Calcium 9.4 mg/dL (8.5-10.1); Chloride 98 mmol/L (98-107); Estimated GFR 70.07 (mL/min/1.73m2); Glucose 132 mg/dL (74-106); Magnesium 1.5 mg/dL (1.8-2.4); Potassium 3.7 mmol/L (3.5-5.1); Sodium 134 mmol/L (136-145)
[2023-12-18] MEDS: Normal Saline Flush 10 ML SYR IVP (09:15)
== END 2023-12-20 23:59 | disposition home or self-care (01) ==
LOC: INF 01:46
PROVIDERS: Nurse Practitioner Family; Visit Provider Internal Medicine Medical Oncology
DX: C34.32 Malignant neoplasm of lower lobe, left bronchus or lung (principal); Z45.2 Encounter for adjustment and management of vascular access device
CPT/HCPCS: 36591; 80053; 83735; 85025

== ENCOUNTER 2024-01-10 02:13 | Outpatient (RCR) | payer MEDICARE, SELFPAY ==
[2024-01-10] MEDS: Normal Saline Flush 10 ML SYR IVP (08:37)
[2024-01-10 08:55] LABS: Abs Immature Grans 0.02 10^3/uL (0.0-0.06); Absolute Basophil Count 0.02 10^3/uL (0.0-0.2); Absolute Eosinophil Count 0.02 10^3/uL (0.0-0.7); Absolute Lymphocyte Count 0.61 10^3/uL (1.2-3.4); Absolute Monocyte Count 0.72 10^3/uL (0.1-0.8); Absolute Neutrophil Count 3.62 10^3/uL (1.2-6.7); Basophils % 0.4 %; Eosinophils % 0.4 %; Immature Grans % 0.4 %; Lymphocytes % 12.2 %; MCH 28.1 pg (27.0-33.0); MCHC 31.3 % (32.0-36.0); MCV 90 fL (80-95); Monocytes % 14.4 %; Neutrophils % 72.2 %; Platelet Count 249 10^3/uL (130-400); RBC 3.56 10^6/uL (3.93-5.22); RDW 21.8 % (11.7-14.6); RDW-SD 70.4 fL; WBC 5.01 10^3/uL (4.4-10.8)
[2024-01-10 09:27] LABS: ALT 32 U/L (14-59); AST 35 U/L (15-37); Albumin 2.4 g/dL (3.4-5.0); Alkaline Phosphatase 111 U/L (46-116); Anion Gap 6.6 mmol/L (3-11); BUN 8 mg/dL (7-18); Bilirubin, Total 0.37 mg/dL (0.2-1.0); CO2 28.4 mmol/L (21.0-32.0); CREATININE 0.8 mg/dL (0.55-1.02); Calcium 9.3 mg/dL (8.5-10.1); Chloride 99 mmol/L (98-107); Estimated GFR 80.71 (mL/min/1.73m2); Glucose 106 mg/dL (74-106); Magnesium 1.6 mg/dL (1.8-2.4); Potassium 4.4 mmol/L (3.5-5.1); Sodium 134 mmol/L (136-145); Total Protein 6.8 g/dL (6.4-8.2)
[2024-01-10 10:23] LABS: Anisocytosis 2+; Diff Comment RBC Morph Reviewed
== END 2024-01-20 23:59 | disposition home or self-care (01) ==
LOC: INF 02:13
PROVIDERS: Nurse Practitioner Family; Visit Provider Internal Medicine Medical Oncology
DX: C34.32 Malignant neoplasm of lower lobe, left bronchus or lung (principal)
CPT/HCPCS: 36591; 80053; 83735; 85025

== ENCOUNTER 2024-01-29 01:35 | Outpatient (RCR) | payer MEDICARE, SELFPAY ==
[2024-01-29 08:55] LABS: Abs Immature Grans 0.02 10^3/uL (0.0-0.06); Absolute Basophil Count 0.01 10^3/uL (0.0-0.2); Absolute Eosinophil Count 0.06 10^3/uL (0.0-0.7); Absolute Lymphocyte Count 0.49 10^3/uL (1.2-3.4); Absolute Monocyte Count 0.67 10^3/uL (0.1-0.8); Absolute Neutrophil Count 3.54 10^3/uL (1.2-6.7); Basophils % 0.2 %; Eosinophils % 1.3 %; HCT 29.5 % (36.0-46.0); HGB 9.1 g/dL (11.2-15.7); Immature Grans % 0.4 %; Lymphocytes % 10.2 %; MCH 28.8 pg (27.0-33.0); MCHC 30.8 % (32.0-36.0); MCV 93 fL (80-95); MPV 9.6 fL (8.0-11.0); Neutrophils % 73.9 %; Platelet Count 248 10^3/uL (130-400); RBC 3.16 10^6/uL (3.93-5.22); RDW 23.5 % (11.7-14.6); RDW-SD 80.2 fL; WBC 4.79 10^3/uL (4.4-10.8)
[2024-01-29] MEDS: Normal Saline Flush 10 ML SYR IVP (09:11)
[2024-01-29 09:22] LABS: ALT 21 U/L (14-59); AST 27 U/L (15-37); Albumin 2.4 g/dL (3.4-5.0); Alkaline Phosphatase 107 U/L (46-116); Anion Gap 8.2 mmol/L (3-11); BUN 8 mg/dL (7-18); Bilirubin, Total 0.39 mg/dL (0.2-1.0); CO2 24.8 mmol/L (21.0-32.0); CREATININE 0.9 mg/dL (0.55-1.02); Calcium 9.4 mg/dL (8.5-10.1); Chloride 99 mmol/L (98-107); Estimated GFR 70.07 (mL/min/1.73m2); Glucose 130 mg/dL (74-106); Magnesium 1.7 mg/dL (1.8-2.4); Potassium 3.8 mmol/L (3.5-5.1); Sodium 132 mmol/L (136-145); Total Protein 6.9 g/dL (6.4-8.2)
[2024-01-29 09:25] LABS: Anisocytosis 2+; Diff Comment RBC Morph Reviewed
[2024-01-29 10:38] LABS: TSH 1.78 uIU/Ml (0.36-3.74)
== END 2024-02-19 23:59 | disposition home or self-care (01) ==
LOC: INF 01:35
PROVIDERS: Nurse Practitioner Family; Visit Provider Internal Medicine Medical Oncology
DX: C34.32 Malignant neoplasm of lower lobe, left bronchus or lung (principal)
CPT/HCPCS: 36591; 80053; 83735; 84439; 84443; 85025

== ENCOUNTER 2024-03-18 01:47 | Outpatient (RCR) | payer MEDICARE, SELFPAY ==
[2024-02-21] MEDS: Normal Saline Flush 10 ML SYR IVP (12:40)
[2024-02-21 12:48] LABS: Abs Immature Grans 0.03 10^3/uL (0.0-0.06); Absolute Basophil Count 0.02 10^3/uL (0.0-0.2); Absolute Eosinophil Count 0.04 10^3/uL (0.0-0.7); Absolute Lymphocyte Count 0.46 10^3/uL (1.2-3.4); Absolute Neutrophil Count 3.64 10^3/uL (1.2-6.7); Basophils % 0.4 %; Eosinophils % 0.9 %; HCT 25.5 % (36.0-46.0); Immature Grans % 0.6 %; Lymphocytes % 9.8 %; MCH 30.7 pg (27.0-33.0); MCV 99 fL (80-95); MPV 9.2 fL (8.0-11.0); Monocytes % 10.7 %; Neutrophils % 77.6 %; Platelet Count 226 10^3/uL (130-400); RBC 2.57 10^6/uL (3.93-5.22); RDW 25.1 % (11.7-14.6); RDW-SD 90.3 fL; WBC 4.69 10^3/uL (4.4-10.8)
[2024-02-21 13:10] LABS: ALT 14 U/L (14-59); AST 26 U/L (15-37); Albumin 2.6 g/dL (3.4-5.0); Alkaline Phosphatase 110 U/L (46-116); Anion Gap 7.6 mmol/L (3-11); Anisocytosis 3+; BUN 10 mg/dL (7-18); Bilirubin, Total 0.53 mg/dL (0.2-1.0); CO2 25.4 mmol/L (21.0-32.0); Calcium 9.4 mg/dL (8.5-10.1); Chloride 99 mmol/L (98-107); Diff Comment RBC Morph Reviewed; Estimated GFR 61.75 (mL/min/1.73m2); Glucose 141 mg/dL (74-106); Magnesium 1.7 mg/dL (1.8-2.4); Polychromasia Present; Potassium 3.7 mmol/L (3.5-5.1); Sodium 132 mmol/L (136-145); Total Protein 7.2 g/dL (6.4-8.2)
[2024-02-21 13:11] LABS: HGB 7.9 g/dL (11.2-15.7)
[2024-03-18] MEDS: Normal Saline Flush 10 ML SYR IVP (09:46)
[2024-03-18 10:00] LABS: Abs Immature Grans 0.03 10^3/uL (0.0-0.06); Absolute Basophil Count 0.03 10^3/uL (0.0-0.2); Absolute Eosinophil Count 0.03 10^3/uL (0.0-0.7); Absolute Lymphocyte Count 0.63 10^3/uL (1.2-3.4); Absolute Monocyte Count 0.99 10^3/uL (0.1-0.8); Absolute Neutrophil Count 4.53 10^3/uL (1.2-6.7); Basophils % 0.5 %; Eosinophils % 0.5 %; HCT 29.3 % (36.0-46.0); HGB 9.1 g/dL (11.2-15.7); Immature Grans % 0.5 %; Lymphocytes % 10.1 %; MCH 33.1 pg (27.0-33.0); MCHC 31.1 % (32.0-36.0); MCV 107 fL (80-95); MPV 9.1 fL (8.0-11.0); Monocytes % 15.9 %; Neutrophils % 72.5 %; Platelet Count 228 10^3/uL (130-400); RBC 2.75 10^6/uL (3.93-5.22); RDW 23.5 % (11.7-14.6); RDW-SD 90.8 fL; WBC 6.24 10^3/uL (4.4-10.8)
[2024-03-18 10:11] LABS: Anisocytosis 2+; Diff Comment RBC Morph Reviewed; Macrocytosis 2+
[2024-03-18 10:20] LABS: ALT 13 U/L (14-59); AST 23 U/L (15-37); Albumin 2.5 g/dL (3.4-5.0); Alkaline Phosphatase 99 U/L (46-116); Anion Gap 10.8 mmol/L (3-11); BUN 9 mg/dL (7-18); Bilirubin, Total 0.48 mg/dL (0.2-1.0); CO2 26.2 mmol/L (21.0-32.0); CREATININE 0.9 mg/dL (0.55-1.02); Calcium 9.7 mg/dL (8.5-10.1); Chloride 103 mmol/L (98-107); Estimated GFR 70.07 (mL/min/1.73m2); Glucose 120 mg/dL (74-106); Magnesium 1.7 mg/dL (1.8-2.4); Potassium 4.2 mmol/L (3.5-5.1); Sodium 140 mmol/L (136-145); Total Protein 6.9 g/dL (6.4-8.2)
== END 2024-03-21 23:59 | disposition home or self-care (01) ==
LOC: INF 01:47
PROVIDERS: Nurse Practitioner Family; Visit Provider Internal Medicine Medical Oncology
DX: C34.32 Malignant neoplasm of lower lobe, left bronchus or lung (principal); Z45.2 Encounter for adjustment and management of vascular access device
CPT/HCPCS: 36591; 80053; 83735; 85025

== ENCOUNTER 2024-04-09 02:46 | Outpatient (RCR) | payer MEDICARE, SELFPAY ==
[2024-04-09] MEDS: Normal Saline Flush 10 ML SYR IVP (08:40)
[2024-04-09 08:56] LABS: Abs Immature Grans 0.02 10^3/uL (0.0-0.06); Absolute Basophil Count 0.06 10^3/uL (0.0-0.2); Absolute Eosinophil Count 0.01 10^3/uL (0.0-0.7); Absolute Lymphocyte Count 0.74 10^3/uL (1.2-3.4); Absolute Monocyte Count 0.77 10^3/uL (0.1-0.8); Absolute Neutrophil Count 5.67 10^3/uL (1.2-6.7); Basophils % 0.8 %; Eosinophils % 0.1 %; HCT 32.5 % (36.0-46.0); HGB 10.2 g/dL (11.2-15.7); Immature Grans % 0.3 %; Lymphocytes % 10.2 %; MCH 33.9 pg (27.0-33.0); MCHC 31.4 % (32.0-36.0); MCV 108 fL (80-95); MPV 9.4 fL (8.0-11.0); Monocytes % 10.6 %; Platelet Count 220 10^3/uL (130-400); RBC 3.01 10^6/uL (3.93-5.22); RDW 16.4 % (11.7-14.6); RDW-SD 65.8 fL; WBC 7.27 10^3/uL (4.4-10.8)
[2024-04-09 09:11] LABS: ALT 14 U/L (14-59); AST 20 U/L (15-37); Albumin 2.5 g/dL (3.4-5.0); Alkaline Phosphatase 86 U/L (46-116); Anion Gap 8.5 mmol/L (3-11); BUN 9 mg/dL (7-18); Bilirubin, Total 0.41 mg/dL (0.2-1.0); CO2 27.5 mmol/L (21.0-32.0); CREATININE 0.8 mg/dL (0.55-1.02); Calcium 9.1 mg/dL (8.5-10.1); Chloride 105 mmol/L (98-107); Estimated GFR 80.71 (mL/min/1.73m2); Glucose 108 mg/dL (74-106); Magnesium 1.6 mg/dL (1.8-2.4); Potassium 3.9 mmol/L (3.5-5.1); Sodium 141 mmol/L (136-145); Total Protein 6.3 g/dL (6.4-8.2)
[2024-04-09 09:40] LABS: Macrocytosis 1+
[2024-04-09 09:41] LABS: Diff Comment RBC Morph Reviewed
== END 2024-04-20 23:59 | disposition home or self-care (01) ==
LOC: INF 02:46
PROVIDERS: Nurse Practitioner Family; Visit Provider Internal Medicine Medical Oncology
DX: C34.32 Malignant neoplasm of lower lobe, left bronchus or lung (principal); Z45.2 Encounter for adjustment and management of vascular access device
CPT/HCPCS: 36591; 80053; 83735; 85025

== ENCOUNTER 2024-05-20 02:13 | Outpatient (RCR) | payer MEDICARE, SELFPAY ==
[2024-04-29] MEDS: Normal Saline Flush 10 ML SYR IVP (08:53)
[2024-04-29 09:05] LABS: Abs Immature Grans 0.16 10^3/uL (0.0-0.06); Absolute Lymphocyte Count 0.48 10^3/uL (1.2-3.4); Absolute Monocyte Count 1.41 10^3/uL (0.1-0.8); Basophils % 0.4 %; Eosinophils % 0.3 %; HCT 33.5 % (36.0-46.0); HGB 10.5 g/dL (11.2-15.7); Immature Grans % 0.9 %; Lymphocytes % 2.6 %; MCH 32.4 pg (27.0-33.0); MCHC 31.3 % (32.0-36.0); MCV 103 fL (80-95); MPV 9.4 fL (8.0-11.0); Monocytes % 7.7 %; Neutrophils % 88.1 %; Platelet Count 366 10^3/uL (130-400); RBC 3.24 10^6/uL (3.93-5.22); RDW-SD 58.2 fL; WBC 18.32 10^3/uL (4.4-10.8)
[2024-04-29 09:09] LABS: Absolute Basophil Count 0.07 10^3/uL (0.0-0.2); Absolute Eosinophil Count 0.05 10^3/uL (0.0-0.7); Absolute Neutrophil Count 16.14 10^3/uL (1.2-6.7)
[2024-04-29 09:30] LABS: ALT 35 U/L (14-59); AST 65 U/L (15-37); Alkaline Phosphatase 154 U/L (46-116); Anion Gap 5.4 mmol/L (3-11); BUN 10 mg/dL (7-18); Bilirubin, Total 0.64 mg/dL (0.2-1.0); CO2 29.6 mmol/L (21.0-32.0); CREATININE 0.7 mg/dL (0.55-1.02); Calcium 9.5 mg/dL (8.5-10.1); Chloride 101 mmol/L (98-107); Estimated GFR 94.73 (mL/min/1.73m2); Glucose 114 mg/dL (74-106); Magnesium 1.8 mg/dL (1.8-2.4); Potassium 4.1 mmol/L (3.5-5.1); Sodium 136 mmol/L (136-145); Total Protein 6.4 g/dL (6.4-8.2)
[2024-05-20 09:23] LABS: Abs Immature Grans 0.08 10^3/uL (0.0-0.06); Absolute Basophil Count 0.04 10^3/uL (0.0-0.2); Absolute Eosinophil Count 0.01 10^3/uL (0.0-0.7); Absolute Lymphocyte Count 0.48 10^3/uL (1.2-3.4); Absolute Monocyte Count 0.66 10^3/uL (0.1-0.8); Absolute Neutrophil Count 12.18 10^3/uL (1.2-6.7); Basophils % 0.3 %; Eosinophils % 0.1 %; HCT 33.1 % (36.0-46.0); HGB 10.5 g/dL (11.2-15.7); Immature Grans % 0.6 %; Lymphocytes % 3.6 %; MCH 32.5 pg (27.0-33.0); MCHC 31.7 % (32.0-36.0); MCV 103 fL (80-95); MPV 9.2 fL (8.0-11.0); Monocytes % 4.9 %; Neutrophils % 90.5 %; Platelet Count 225 10^3/uL (130-400); RBC 3.23 10^6/uL (3.93-5.22); RDW 15.4 % (11.7-14.6); RDW-SD 57.2 fL; WBC 13.46 10^3/uL (4.4-10.8)
[2024-05-20] MEDS: Normal Saline Flush 10 ML SYR IVP (09:31)
[2024-05-20 09:37] LABS: ALT 40 U/L (14-59); AST 34 U/L (15-37); Albumin 1.9 g/dL (3.4-5.0); Alkaline Phosphatase 199 U/L (46-116); Anion Gap 7.7 mmol/L (3-11); BUN 9 mg/dL (7-18); Bilirubin, Total 0.79 mg/dL (0.2-1.0); CO2 29.3 mmol/L (21.0-32.0); CREATININE 0.7 mg/dL (0.55-1.02); Calcium 9.1 mg/dL (8.5-10.1); Chloride 102 mmol/L (98-107); Estimated GFR 94.73 (mL/min/1.73m2); Glucose 157 mg/dL (74-106); Magnesium 1.5 mg/dL (1.8-2.4); Potassium 3.5 mmol/L (3.5-5.1); Sodium 139 mmol/L (136-145); Total Protein 6.1 g/dL (6.4-8.2)
== END 2024-05-21 23:59 | disposition home or self-care (01) ==
LOC: INF 02:13
PROVIDERS: Nurse Practitioner Family; Visit Provider Internal Medicine Medical Oncology
DX: C34.32 Malignant neoplasm of lower lobe, left bronchus or lung (principal); Z45.2 Encounter for adjustment and management of vascular access device
CPT/HCPCS: 36591; 80053; 83735; 85025